=== PATIENT | female | born 1945 | race Caucasian/White ===

== ENCOUNTER → 2016-12-10 | Outpatient (CLI) | payer MEDICARE ==
[~2016-12-10] MED LIST: ASPI-516 CHEW; LOSA50TA PO; LOVA40TA PO
[2016-12-10 13:45] LABS: HEMATOCRIT 41.3 % (35.0-46.0); HEMOGLOBIN 13.8 GM/DL (11.6-15.3); MEAN CELL VOLUME 90.2 FL (80.0-100.0); MEAN CORPUSCULAR HEMOGLOBIN 30.2 PG (27.0-34.0); MEAN CORPUSCULAR HGB CONC 33.4 % (32.0-36.0); MEAN PLATELET VOLUME 10.2 FL (7.0-11.0); PLATELET COUNT 200 TH/MM3 (150-450); RED BLOOD COUNT 4.58 MIL/MM3 (4.00-5.30); RED CELL DISTRIBUTION WIDTH 14.4 % (11.6-17.2)
[2016-12-10 13:50] LABS: BILIRUBIN, URINE NEG (NEG); BLOOD, URINE TRACE (NEG); GLUCOSE,URINE NEG (NEG); KETONE, URINE 10 mg/dL (NEG); NITRITE,URINE NEG (NEG); PH, URINE 5.5 (5.0-8.5); URINE COLOR YELLOW (YELLW/STRAW); URINE LEUKOCYTE ESTERASE NEG (NEG)
--- NOTE | 2016-12-10 22:07 | EKG ---
Date Performed: 12/10/2016 Time Performed: 13:05:29 PTAGE: 71 years EKG: Sinus rhythm NORMAL ECG NO PREVIOUS TRACING DOCTOR: Sumanth Lim Interpretating Date/Time 12/10/2016 22:06:22
--- NOTE | 2016-12-10 22:07 | EKG ---
Date Performed: 12/10/2016 Time Performed: 13:05:29 PTAGE: 71 years EKG: Sinus rhythm NORMAL ECG NO PREVIOUS TRACING DOCTOR: Sumanth Lim Interpretating Date/Time 12/10/2016 22:06:22
--- NOTE | 2016-12-10 22:07 | EKG ---
Date Performed: 12/10/2016 Time Performed: 13:05:29 PTAGE: 71 years EKG: Sinus rhythm NORMAL ECG NO PREVIOUS TRACING DOCTOR: Sumanth Lim Interpretating Date/Time 12/10/2016 22:06:22
== END ==
LOC: CPRE 12:43
PROVIDERS: ATTEND Obstetrics & Gynecology
DX: Z01.810 Encounter for preprocedural cardiovascular examination (principal); Z01.812 Encounter for preprocedural laboratory examination; N95.0 Postmenopausal bleeding; D25.9 Leiomyoma of uterus, unspecified
CPT/HCPCS: 36415; 81001; 85027; 93005

== ENCOUNTER → 2016-12-12 | Day surgery (SDC) | payer MEDICARE ==
--- NOTE | 2016-12-11 09:10 | MH ---
cc: GURINDER DUNN JOHN DATE OF ADMISSION: 12/12/2016 ADMISSION DIAGNOSIS Postmenopausal bleeding. HISTORY OF PRESENT ILLNESS The patient is a 71-year-old single white female para 0 who developed painless vaginal bleeding in May of 2016. She saw her primary doctor, Dr. Dunn. He obtained a vaginal ultrasound on 11/06/2016 that showed a uterus that measured 8.1 cm, endometrium 9 mm, normal-appearing ovaries and fibroids. The right ovary showed a 1.5 cm cyst and the left showed a 4.1 cm cyst. She is now admitted for surgical evaluation. PAST MEDICAL HISTORY PREVIOUS SURGERIES None. MEDICATIONS Losartan. ALLERGIES None. TRANSFUSIONS None. OB HISTORY None. SERIOUS MEDICAL ILLNESS 1. Hypertension. 2. High cholesterol. SOCIAL HISTORY Retired. Alcohol occasional. Tobacco none. Drugs none. FAMILY HISTORY Noncontributory. PHYSICAL EXAMINATION GENERAL: A well-nourished, well-developed white female. VITAL SIGNS: Stable. HEENT: Exam is normal. CHEST: Clear. HEART: Regular rate. BREASTS: Symmetrical. ABDOMEN: Benign. PELVIC EXAM: Vagina is atrophic. Cervix normal. Uterus enlarged, about 12 weeks' size. Adnexa nonpalpable. ASSESSMENT As above. PLAN She is now admitted for outpatient hysteroscopy and D&C. While in the office I explained the procedures, the risks, benefits and complications and possible need for additional surgery pending findings. The patient would like to proceed. MD CHRISTIANO Buenrostro/SSB /8:35 AM /8:40 AM
[~2016-12-12] VITALS: Ht 172.7 cm; Wt 98.9 kg
[~2016-12-12] MED LIST changes: +ACETAMINOPHEN 1000 MG/100 ML 0 ML IV ONE; +ACETAMINOPHEN 1000 MG/100 ML VIAL IV SCH; -ASPI-516 CHEW; +ASPI81CH CHEW; +CHLORHEXIDINE GLUCONATE 2 % 1 PACK (2 CLOTHS) TOPICAL PRN; +DO NOT ADM ANY ANTICOAGULANT DRUGS PRN; +FAMOTIDINE 20 MG/2 ML VIAL ONE; +INSULIN HUMAN REGULAR 1,000 UNITS/10 ML VIAL SQ PRN; +LACTATED RINGER'S 1000 ML IV PRN; +LIDOCAINE HCL 1% PF 5 ML AMPULE OTHER ONE; +METOCLOPRAMIDE HCL 10 MG/2 ML VIAL IV PUSH PRN; +METOPROLOL TARTRATE 25 MG TAB PO PRN; +MIDAZOLAM HCL 2 MG/2 ML VIAL IV ONE; +ONDANSETRON HCL 4 MG/2 ML VIAL IV PUSH ONE; +POVIDONE IODINE 5% (ANTISEPSIS KIT) 4 APPLICATIONS EACH NARE PRN; +PROPOFOL 200 MG/20 ML AMP IV ONE; +SODIUM CHLORID 0.9% 500 ML IV PRN
[2016-12-12 09:20] VITALS: BP 145/67; PULSE 52; RESP 20; TEMP 96.6; O2SAT 99
--- NOTE | 2016-12-12 11:36 | MP ---
cc: LEIGH FITZGERALD DATE OF SURGERY 12/12/2016 PREOPERATIVE DIAGNOSIS bleeding with endometrial thickening and fibroids. POSTOPERATIVE DIAGNOSIS bleeding with endometrial thickening and fibroids with polyps. PROCEDURE Hysteroscopy, D&C. ANESTHESIA General LMA ESTIMATED BLOOD LOSS Less than 10 cc FLUIDS About 300 cc crystalloid. OBJECTIVE FINDINGS Following the induction of adequate general LMA anesthesia, the patient was prepped and draped supine on the operating table in the dorsolithotomy position in the usual sterile fashion with the bladder being drained via in and out catheterization. Exam of the anesthesia revealed an approximately 10 weeks size uterus. No adnexal masses palpable. The cervix exposed with handheld retractors. The anterior lip of the cervix grasped with a single-toothed tenaculum. Necrotic polyp-like structure removed from the cervix for permanent study. The cervix and uterus sounded to 8 cm. The uterus dilated with a #19 Hanks dilator. The scope passed revealing a normal endocervix with endometrial polyps and submucosal fibroids. The scope was now removed. Endocervical curettings obtained with a small serrated curet, endometrium a small sharp curette and polyp forceps were used to remove the polyps. All instruments removed. All counts correct. The patient's legs taken out of the stirrups and she was awakened and taken to the Recovery Room in good condition. MD CHRISTIANO Buenrostro/JASMIN /7:48 AM /11:29 AM
== END | disposition home or self-care (01) ==
LOC: HSDC 05:20
PROVIDERS: ATTEND Obstetrics & Gynecology
DX: N95.0 Postmenopausal bleeding (principal); D25.0 Submucous leiomyoma of uterus; N84.0 Polyp of corpus uteri; N84.1 Polyp of cervix uteri; R93.8 Abnormal findings on diagnostic imaging of other specified body structures; N90.5 Atrophy of vulva; I10 Essential (primary) hypertension; E78.00 Pure hypercholesterolemia, unspecified
CPT/HCPCS: 00952; 58558; 88305; J0131; J2250; J2405; J3010; J7120

== ENCOUNTER → 2017-01-27 | Outpatient (CLI) | payer MEDICARE ==
[~2017-01-27] MED LIST changes: -ACETAMINOPHEN 1000 MG/100 ML 0 ML IV ONE; -ACETAMINOPHEN 1000 MG/100 ML VIAL IV SCH; +ASPI-516 CHEW; -ASPI81CH CHEW; -CHLORHEXIDINE GLUCONATE 2 % 1 PACK (2 CLOTHS) TOPICAL PRN; -DO NOT ADM ANY ANTICOAGULANT DRUGS PRN; -FAMOTIDINE 20 MG/2 ML VIAL ONE; -INSULIN HUMAN REGULAR 1,000 UNITS/10 ML VIAL SQ PRN; -LACTATED RINGER'S 1000 ML IV PRN; -LIDOCAINE HCL 1% PF 5 ML AMPULE OTHER ONE; -METOCLOPRAMIDE HCL 10 MG/2 ML VIAL IV PUSH PRN; -METOPROLOL TARTRATE 25 MG TAB PO PRN; -MIDAZOLAM HCL 2 MG/2 ML VIAL IV ONE; -ONDANSETRON HCL 4 MG/2 ML VIAL IV PUSH ONE; -POVIDONE IODINE 5% (ANTISEPSIS KIT) 4 APPLICATIONS EACH NARE PRN; -PROPOFOL 200 MG/20 ML AMP IV ONE; -SODIUM CHLORID 0.9% 500 ML IV PRN
[2017-01-27 13:22] LABS: BASOPHIL % 0.9 % (0.0-2.0); EOSINOPHIL # 0.1 TH/MM3 (0-0.4); EOSINOPHIL % 2.6 % (0.0-4.0); HEMATOCRIT 42.3 % (35.0-46.0); HEMO FLAGS DIFF FINAL; LYMPH % 13.2 % (9.0-44.0); LYMPHOCYTE # 0.7 TH/MM3 (1.0-4.8); MEAN CELL VOLUME 90.2 FL (80.0-100.0); MEAN CORPUSCULAR HEMOGLOBIN 30.6 PG (27.0-34.0); MEAN CORPUSCULAR HGB CONC 33.9 % (32.0-36.0); NEUT % 77.3 % (16.0-70.0); PLATELET COUNT 219 TH/MM3 (150-450); RED BLOOD COUNT 4.69 MIL/MM3 (4.00-5.30); RED CELL DISTRIBUTION WIDTH 14.4 % (11.6-17.2); WHITE BLOOD COUNT 5.2 TH/MM3 (4.0-11.0)
[2017-01-27 13:36] LABS: BLOOD, URINE NEG (NEG); COMMENT (UR) CULT NOT INDICATED; CULTURE IF INDICATED CULT NOT INDICATED; GLUCOSE,URINE NEG (NEG); KETONE, URINE NEG (NEG); MUCUS URINE FEW /lpf (OCC); NITRITE,URINE NEG (NEG); PH, URINE 5.5 (5.0-8.5); URINE COLOR LIGHT-YELLOW (YELLW/STRAW)
[2017-01-27 13:42] LABS: POTASSIUM 4.1 MEQ/L (3.5-5.1)
[2017-01-27 13:43] LABS: BICARBONATE 27.6 MEQ/L (21.0-32.0)
== END ==
LOC: CPRE 12:47
PROVIDERS: ATTEND Obstetrics & Gynecology
DX: Z01.818 Encounter for other preprocedural examination (principal)
CPT/HCPCS: 36415; 80051; 81001; 85025

== ENCOUNTER 2017-01-29 13:43 | Observation (INO) | payer MEDICARE ==
--- NOTE | 2017-01-28 12:05 | MH ---
cc: LEIGH FITZGERALD DATE OF ADMISSION 01/29/2017 ADMISSION DIAGNOSIS Postmenopausal bleeding, uterine fibroids, polyps and ovarian cyst. HISTORY OF PRESENT ILLNESS This is a 71-year-old single white female para 0 developed painless bleeding per vagina approximately May of 2016. Dr. Cortes obtain ultrasound on 10/2016 which showed endometrial thickening, fibroids and bilateral ovarian cysts. She underwent outpatient hysteroscopy, D&C on 12/12/2016 that returned benign polyps and fibroids. Due to persistent symptoms, she is now admitted for hysterectomy. PAST MEDICAL HISTORY Previous surgery: As mentioned per HPI. Allergies: None Transfusions: None Serious Medical Illness: 1. Hypertension 2. High cholesterol MEDICATIONS Takes: 1. Losartan 2. Pravastatin OBSTETRICAL HISTORY None SOCIAL HISTORY Retired. Alcohol occasional, tobacco none. Drugs, none. FAMILY HISTORY Noncontributory PHYSICAL EXAM This is an overweight white female. VITAL SIGNS: Stable. Height 05/08, weight 218. HEENT: Exam is normal. CHEST: Clear. HEART: Regular rate. BREASTS: Symmetrical. ABDOMEN: Benign. PELVIC: Normal external genitalia and BUS. Vagina is normal. Cervix normal. Uterus is about 12 weeks' size. Adnexa nonpalpable. ASSESSMENT As above. PLAN She is now admitted for laparoscopy with planned LASH procedure, BSO, possible COBY-BSO. While in the office, we explained the procedures, the risks, benefits and complications and patient would like to proceed. Discussed different recovery times for this type of incision. The patient would like to proceed. MD CHRISTIANO Buenrostro/JASMIN /11:42 AM /11:50 AM
[~2017-01-29] VITALS: Ht 172.7 cm; Wt 96.3 kg
[~2017-01-29 13:43] MED LIST changes: +DEXAMETHASONE SOD PHOS 4 MG/ML VIAL IV ONE; +GLYCOPYRROLATE 1 MG/5 ML SYRINGE IV PUSH ONE; +KETOROLAC TROMETHAMINE 30 MG/ML (IVP) VIAL IV PUSH ONE; +LIDOCAINE HCL 1% PF 5 ML SYRINGE OTHER ONE; +NEOSTIGMINE 5 MG/5 ML SYRINGE IV PUSH ONE; +ONDANSETRON HCL 4 MG/2 ML VIAL IV ONE; +PHENYLEPH/NS 1000 MCG/10 ML SYR IV ONE; +PROPOFOL 200 MG/20 ML AMP IV ONE; +ROCURONIUM INJ 50 MG/5 ML SYRINGE IV PUSH ONE
[2017-01-29] MEDS ORDERED: ACETAMINOPHEN 1000 MG/100 ML 100 ML IV SCH (14:15)
[2017-01-29] MEDS ORDERED: POVIDONE IODINE 5% (ANTISEPSIS KIT) 4 APPLICATIONS EACH NARE PRN (14:15)
[2017-01-29] MEDS ORDERED: SODIUM CHLORID 0.9% 500 ML IV PRN (14:15)
[2017-01-29] MEDS ORDERED: METOPROLOL TARTRATE 25 MG TAB PO PRN (14:15)
[2017-01-29] MEDS ORDERED: CHLORHEXIDINE GLUCONATE 2 % 1 PACK (2 CLOTHS) TOPICAL PRN (14:15)
[2017-01-29] MEDS ORDERED: LACTATED RINGER'S 1000 ML IV PRN (14:15)
[2017-01-29] MEDS ORDERED: CLINDAMYCIN PHOS 600 MG/4 ML VIAL ONE (15:16)
[2017-01-29] MEDS ORDERED: SODIUM CHLORIDE 0.9% INJ 0 ML ONE (15:17)
[2017-01-29] MEDS ORDERED: SODIUM CHLORIDE 0.9% INJ 100 ML ONE ×2 (15:21)
[2017-01-29] MEDS ORDERED: CLINDAMYCIN 600 MG/NS PREMIX 50 ML IV ONE (15:30)
[2017-01-29] MEDS ORDERED: diphenhydrAMINE HCL 25 MG CAP PO PRN (17:30)
[2017-01-29] MEDS ORDERED: ONDANSETRON HCL 4 MG/2 ML VIAL IV PUSH PRN (17:30)
[2017-01-29] MEDS ORDERED: PROMETHAZINE INJ 25 MG/ML VIAL IM PRN (17:30)
[2017-01-29] MEDS ORDERED: ZOLPIDEM TARTRATE 5 MG TAB PO PRN (17:30)
[2017-01-29] MEDS ORDERED: DO NOT ADM ANY ANTICOAGULANT DRUGS PRN (17:41)
[2017-01-29] MEDS: D5-1/2 NS + KCL 20 MEQ INJ 1,000 ML IV SCH (17:45)
[2017-01-29] MEDS ORDERED: ONDANSETRON INJ 8 MG in DEXTROSE 5% IN WATER INJ 50 ML IV PRN ×2 (18:15)
[2017-01-29] MEDS ORDERED: GLYCOPYRROLATE 0.2 MG/ML VIAL ONE (18:42)
[2017-01-29] MEDS ORDERED: GLYCOPYRROLATE 0.2 MG/ML VIAL IV ONE (19:00)
[2017-01-29 20:00] VITALS: BP 127/52; PULSE 58; RESP 18; TEMP 98; O2SAT 100
[2017-01-29] MEDS ORDERED: DOCUSATE SODIUM 100 MG CAP PO SCH (21:00)
[2017-01-29 21:49] LABS: HEMATOCRIT 41.8 % (35.0-46.0); REVIEW FLAG FINAL
[2017-01-29] MEDS: KETOROLAC TROMETHAMINE 30 MG/ML (IVP) VIAL IVP SCH (23:46)
[2017-01-29 23:47] VITALS: BP 116/68; PULSE 76; RESP 18; TEMP 97.5; O2SAT 96
[2017-01-30] MEDS: D5-1/2 NS + KCL 20 MEQ INJ 1,000 ML IV SCH (01:25)
[2017-01-30 04:00] VITALS: BP 127/69; PULSE 61; RESP 16; TEMP 97.6; O2SAT 98
[2017-01-30 06:12] LABS: AUTOMATED NEUTROPHIL # 9.5 TH/MM3 (1.8-7.7); BASOPHIL % 0.2 % (0.0-2.0); HEMATOCRIT 39.4 % (35.0-46.0); HEMO FLAGS DIFF FINAL; LYMPH % 4.4 % (9.0-44.0); LYMPHOCYTE # 0.5 TH/MM3 (1.0-4.8); MEAN CELL VOLUME 91.2 FL (80.0-100.0); MEAN CORPUSCULAR HEMOGLOBIN 30.4 PG (27.0-34.0); MEAN CORPUSCULAR HGB CONC 33.4 % (32.0-36.0); NEUT % 92.4 % (16.0-70.0); PLATELET COUNT 173 TH/MM3 (150-450); RED BLOOD COUNT 4.32 MIL/MM3 (4.00-5.30); RED CELL DISTRIBUTION WIDTH 14.2 % (11.6-17.2); WHITE BLOOD COUNT 10.3 TH/MM3 (4.0-11.0)
[2017-01-30] MEDS: KETOROLAC TROMETHAMINE 30 MG/ML (IVP) VIAL IVP SCH (06:14)
[2017-01-30 06:30] LABS: BICARBONATE 22.6 MEQ/L (21.0-32.0); POTASSIUM 4.6 MEQ/L (3.5-5.1)
--- NOTE | 2017-01-30 08:26 | MP ---
cc: LEIGH FITZGERALD DATE OF SURGERY 01/29/2017 PREOPERATIVE DIAGNOSES Postmenopausal bleeding, uterine fibroids. Endometrial polyps. Ovarian cyst. POSTOPERATIVE DIAGNOSES Postmenopausal bleeding, uterine fibroids. Endometrial polyps. Ovarian cyst. Left paratubal cyst. Simple cyst on the right ovary. OBJECTIVE FINDINGS Following the induction of adequate general endotracheal anesthesia the patient was prepped and draped supine on the operating table in the usual sterile fashion. The abdomen was opened through a 3-cm curving infraumbilical incision using a knife to cut down through the skin to the fascia. The fascia was opened transversely, the peritoneum entered bluntly and digital palpation was normal. GelPort was placed, the laparoscope inserted a 5-port placed in the left lower quadrant and the same on the right. Findings revealed a 4-cm paratubal cyst on the left, simple cyst on the right. There was a creamy fluid in the right side of the cul-de-sac with no signs of any infection, diverticular disease. There were some adhesions around the cecum and the appendiceal site but no signs of inflammation. The cloudy peritoneal fluid was aspirated out for culture and for cytology. Harmonic scalpel was then used take the left ovarian vessels, left round ligament, left broad ligament, left side of the bladder flap and the same on the right. Harmonic scalpel now used to amputate the fundus from the cervix, a pouch inserted and the uterus, tubes and ovaries extracted intact in the pouch. Irrigation was now performed. No bleeding was evident. Blood pressure test was done; there was no bleeding. Ureters were inspected with good peristalsis. The operative site was coated with Evicel. The GelPort was now removed, the peritoneum closed with a running stitch of 2-0 Vicryl. The fascia was closed with a running locking stitch of 0 Vicryl from the corners to midline and tied, the subcu with running 3-0 Vicryl and skin with a running subcuticular 3-0Monocryl. The scope was now reinserted through the lower ports. Inspection revealed the GelPort site to be well-closed with no entrapment of tissue. The pelvis was inspected; there was no bleeding. The scope was now removed, gas allowed to escape. The small ports were removed and sutured with 3-0 Monocryl. Dermabond applied. All counts were correct. The patient was awakened and taken to the recovery room in good condition. MD CHRISTIANO Buenrostro/MALACHI /5:21 PM /8:07 AM
--- NOTE | 2017-01-30 08:33 | HHI.DCPOC ---
Discharge Care Plan Report Symptoms to Your Doctor -Temperature above 100.5 degrees -Redness, of incision or excessive or foul smelling drainage -Unusual pain or calf pain -Increased vaginal bleeding -Painful or difficulty urinating -Feelings of extreme sadness or anxiety after 2 weeks Goals to Promote Your Health * To prevent worsening of your condition and complications * To maintain your health at the optimal level Directions to Meet Your Goals Take your medications as prescribed Follow your dietary instruction Follow activity as directed Ensure plenty of rest for recovery Drink fluids for hydration Keep your appointments as scheduled Take your immunizations and boosters as scheduled If your symptoms worsen call your PCP, if no PCP go to Urgent Care Center or Emergency Room Smoking is Dangerous to Your Health. Avoid second hand smoke Call the 24-hour crisis hotline for domestic abuse at [place] MD Jan 30, 2017 08:33
[2017-01-30 08:47] VITALS: BP 143/60; PULSE 62; RESP 16; TEMP 97.6; O2SAT 99
[2017-01-30] MEDS: ACETAMINOPHEN 1000 MG/100 ML VIAL IV SCH ×2 (08:51)
== END 2017-01-30 09:30 | disposition home or self-care (01) ==
LOC: HSDC 13:43 → HSDI 17:27 → H1EA 18:58
PROVIDERS: ADMIT Obstetrics & Gynecology; ATTEND Obstetrics & Gynecology
DX: N95.0 Postmenopausal bleeding (principal); D25.9 Leiomyoma of uterus, unspecified; N84.0 Polyp of corpus uteri; N83.291 Other ovarian cyst, right side; I10 Essential (primary) hypertension; E78.00 Pure hypercholesterolemia, unspecified
CPT/HCPCS: 00840; 58542; 80048; 85014; 85018; 85025; 87015; 87070; 87102; 87116; 87205; 87206; 88112; 88305; 88307; 96365; 96375; G0378; J0131; J1100; J1885; J2370; J2405; J2710; J3010; J3480

== ENCOUNTER 2017-07-28 09:40 | Inpatient (IN) | payer MEDICARE ==
[~2017-07-28] VITALS: Ht 172.7 cm; Wt 81.9 kg
[2017-07-28 09:40] VITALS: BP 134/73; PULSE 83; RESP 16; TEMP 97.5; O2SAT 97
[~2017-07-28 09:40] MED LIST changes: -DEXAMETHASONE SOD PHOS 4 MG/ML VIAL IV ONE; -GLYCOPYRROLATE 1 MG/5 ML SYRINGE IV PUSH ONE; -KETOROLAC TROMETHAMINE 30 MG/ML (IVP) VIAL IV PUSH ONE; -LIDOCAINE HCL 1% PF 5 ML SYRINGE OTHER ONE; -NEOSTIGMINE 5 MG/5 ML SYRINGE IV PUSH ONE; -ONDANSETRON HCL 4 MG/2 ML VIAL IV ONE; -PHENYLEPH/NS 1000 MCG/10 ML SYR IV ONE; -PROPOFOL 200 MG/20 ML AMP IV ONE; -ROCURONIUM INJ 50 MG/5 ML SYRINGE IV PUSH ONE
[2017-07-28] MEDS ORDERED: SODIUM CHLOR 0.9% 1000 ML INJ 1,000 ML IV ONE (10:18)
[2017-07-28] MEDS ORDERED: SODIUM CHLORIDE 0.9% FLUSH 10 ML FLUSH IVF PRN (10:30)
[2017-07-28 10:41] LABS: AUTOMATED NEUTROPHIL # 4.3 TH/MM3 (1.8-7.7); BASOPHIL % 0.9 % (0.0-2.0); EOSINOPHIL # 0.1 TH/MM3 (0-0.4); EOSINOPHIL % 1.8 % (0.0-4.0); HEMATOCRIT 37.2 % (35.0-46.0); HEMOGLOBIN 12.3 GM/DL (11.6-15.3); LYMPH % 9.8 % (9.0-44.0); LYMPHOCYTE # 0.5 TH/MM3 (1.0-4.8); MEAN CELL VOLUME 84.6 FL (80.0-100.0); MEAN CORPUSCULAR HGB CONC 33.1 % (32.0-36.0); MEAN PLATELET VOLUME 9.8 FL (7.0-11.0); MONO % 7.1 % (0.0-8.0); MONOCYTE # 0.4 TH/MM3 (0-0.9); NEUT % 80.4 % (16.0-70.0); PLATELET COUNT 245 TH/MM3 (150-450); RED CELL DISTRIBUTION WIDTH 15.5 % (11.6-17.2); WHITE BLOOD COUNT 5.4 TH/MM3 (4.0-11.0)
[2017-07-28 11:56] VITALS: BP_SYST 115; BP_SYST 148; BP_DIAS 54; BP_DIAS 67; PULSE 86; PULSE 95; RESP 18; O2SAT 97
--- NOTE | 2017-07-28 12:00 | PD ---
HPI Chief Complaint: GI Complaint Time Seen by Provider: 09:49 Travel History International Travel<30 days: No Contact w/Intl Traveler<30days: No Traveled to known affect area: No History of Present Illness HPI 71-year-old female with history of hyperlipidemia, hypertension, presents today with complaints of diffuse watery diarrhea and nausea vomiting. Patient's had diarrhea for 1 month now. She also reports that she has had 2 episodes of severe vomiting lasting up to an hour each time. Patient has also had a 100 pound weight loss over the last 4 years. The patient apparently has been worked up by her primary care physician however there is been no resolution. She has had 2 CT scans and 2 ultrasounds. She has also had a colonoscopy. The patient states that they were told that they had a dilated stomach outpouching seen on x-ray. She denies any recent antibiotic use. She does give history that she did have an egg sandwich when this started. She reports that was about the same time when his Salmonella outbreak occurred at [facility]. There is no reported fevers, chills. She does report generalized weakness. PFSH Past Medical History Blood Disorders: No Cancer: No Cardiovascular Problems: No High Cholesterol: Yes Chemotherapy: No Diabetes: No Diminished Hearing: No Endocrine: No Genitourinary: No Hepatitis: No Hiatal Hernia: No Hypertension: Yes Immune Disorder: No Musculoskeletal: No Neurologic: No Psychiatric: No Reproductive: No Respiratory: No Radiation Therapy: No Thyroid Disease: No Tetanus Vaccination: > 5 Years Influenza Vaccination: Yes ?: Not Past Surgical History Abdominal Surgery: No AICD: No Body Medical Devices: none Cardiac Surgery: No Ear Surgery: No Endocrine Surgery: No Eye Surgery: No Genitourinary Surgery: No Gynecologic Surgery: Yes (D+C) Hysterectomy: Yes Joint Replacement: No Oral Surgery: No Pacemaker: No Thoracic Surgery: No Other Surgery: Yes (colonoscopy) Social History Alcohol Use: No Tobacco Use: No Substance Use: No Allergies-Medications (Allergen,Severity, Reaction): Coded Allergies: shellfish derived (Verified Allergy, Severe, Swelling, 07/28/17) sulfite (Verified Allergy, Severe, Hives, 07/28/17) penicillin G (Verified Allergy, Unknown, Hives, 07/28/17) Reported Meds & Prescriptions Reported Meds & Active Scripts Active Reported Aspirin 81 Mg Chew 81 Mg CHEW DAILY Losartan (Losartan Potassium) 50 Mg Tab 50 Mg PO DAILY Lovastatin 40 Mg Tab 40 Mg PO DAILY Review of Systems Except as stated in HPI: all other systems reviewed are Neg General / Constitutional: No: Fever HENT: Positive: Lightheadedness, No: Headaches, Neck Pain Cardiovascular: No: Chest Pain or Discomfort, Palpitations, Irregular Rhythm Respiratory: No: Cough, Shortness of Breath Gastrointestinal: Positive: Nausea, Vomiting, Diarrhea, Abdominal Pain Genitourinary: No: Frequency, Dysuria Musculoskeletal: Positive: Weakness (Generalized), No: Pain Neurologic: Positive: Weakness (Generalized), Dizziness, No: Headache Physical Exam Narrative GENERAL: Well-developed female who appears to have dry mucous membranes. Patient is not in acute respiratory distress. SKIN: Focused skin assessment warm/dry. HEAD: Atraumatic. Normocephalic. EYES: Pupils equal and round. No scleral icterus. No injection or drainage. ENT: No nasal bleeding or discharge. Mucous membranes pink and moist. NECK: Trachea midline. Supple. CARDIOVASCULAR: Regular rate and rhythm. No murmur appreciated. RESPIRATORY: No accessory muscle use. Clear to auscultation. Breath sounds equal bilaterally. GASTROINTESTINAL: Abdomen soft, non-tender, nondistended. No pulsatile masses. No rebound. MUSCULOSKELETAL: No obvious deformities. No clubbing. No cyanosis. No edema. NEUROLOGICAL: Awake and alert. No obvious cranial nerve deficits. Motor grossly within normal limits. Normal speech. Data Data Last Documented VS Orders Orders Complete Blood Count With Diff (07/28/17 10:18) Urinalysis - C+S If Indicated (07/28/17 10:18) Lipase (07/28/17 10:18) Iv Access Insert/Monitor (07/28/17 10:18) Ecg Monitoring (07/28/17 10:18) Oximetry (07/28/17 10:18) Sodium Chlor 0.9% 1000 Ml Inj (Ns 1000 M (07/28/17 10:18) Sodium Chloride 0.9% Flush (Ns Flush) (07/28/17 10:30) Thyroid Stimulating Hormone (07/28/17 10:18) Comprehensive Metabolic Panel (07/28/17 10:55) C Diff Toxin Pcr (07/28/17 13:23) Enteric Path (Stool) (07/28/17 13:23) Admit To Inpatient (07/28/17 ) Vital Signs (Adult) Q4H (07/28/17 14:18) Activity Oob With Assistance (07/28/17 14:18) Sales Support Assistant / Telemetry .CONTINUOUS (07/28/17 14:18) Diet Clear Liquid (07/28/17 Dinner) Sodium Chlor 0.9% 1000 Ml Inj (Ns 1000 M (07/28/17 14:18) Sodium Chloride 0.9% Flush (Ns Flush) (07/28/17 14:30) Sodium Chloride 0.9% Flush (Ns Flush) (07/28/17 21:00) Metoclopramide Inj (Reglan Inj) (07/28/17 14:30) Complete Blood Count With Diff (07/29/17 06:00) Enoxaparin Inj (Lovenox Inj) (07/28/17 16:00) Scd Bilateral/Knee High JOSE LUIS.BID (07/28/17 14:18) Naloxone Inj (Narcan Inj) (07/28/17 14:30) Inpatient Certification (07/28/17 ) Consult Gastroenterology (07/28/17 ) Phosphorus (Po4) (07/29/17 06:00) Magnesium (Mg) (07/29/17 06:00) Lipase (07/29/17 06:00) Kiara Screen (07/29/17 06:00) Rheumatoid Screen/Titer (Rf) (07/29/17 06:00) C-Reactive Protein (Crp) (07/29/17 06:00) Westergren Sedimentation Rate (07/29/17 06:00) (Hub Use Only)Inp Phy Cons/Ref (07/28/17 ) Admit Order (Ed Use Only) (07/28/17 14:29) Ondansetron Odt (Zofran Odt) (07/28/17 15:30) Labs Laboratory Tests Test 07/28/17 10:10 07/28/17 13:20 White Blood Count 5.4 TH/MM3 Red Blood Count 4.40 MIL/MM3 Hemoglobin 12.3 GM/DL Hematocrit 37.2 % Mean Corpuscular Volume 84.6 FL Mean Corpuscular Hemoglobin 28.0 PG Mean Corpuscular Hemoglobin Concent 33.1 % Red Cell Distribution Width 15.5 % Platelet Count 245 TH/MM3 Mean Platelet Volume 9.8 FL Neutrophils (%) (Auto) 80.4 % Lymphocytes (%) (Auto) 9.8 % Monocytes (%) (Auto) 7.1 % Eosinophils (%) (Auto) 1.8 % Basophils (%) (Auto) 0.9 % Neutrophils # (Auto) 4.3 TH/MM3 Lymphocytes # (Auto) 0.5 TH/MM3 Monocytes # (Auto) 0.4 TH/MM3 Eosinophils # (Auto) 0.1 TH/MM3 Basophils # (Auto) 0.0 TH/MM3 CBC Comment DIFF FINAL Differential Comment Blood Urea Nitrogen 10 MG/DL Creatinine 0.97 MG/DL Random Glucose 83 MG/DL Total Protein 7.0 GM/DL Albumin 2.9 GM/DL Calcium Level 8.5 MG/DL Alkaline Phosphatase 111 U/L Aspartate Amino Transf (AST/SGOT) 13 U/L Alanine Aminotransferase (ALT/SGPT) 13 U/L Total Bilirubin 0.4 MG/DL Sodium Level 141 MEQ/L Potassium Level 3.2 MEQ/L Chloride Level 109 MEQ/L Carbon Dioxide Level 20.8 MEQ/L Anion Gap 11 MEQ/L Estimat Glomerular Filtration Rate 57 ML/MIN Lipase 187 U/L Thyroid Stimulating Hormone 3rd Gen 1.690 uIU/ML Urine Color YELLOW Urine Turbidity CLEAR Urine pH 5.5 Urine Specific [place] 1.009 Urine Protein NEG mg/dL Urine Glucose (UA) NEG mg/dL Urine Ketones NEG mg/dL Urine Occult Blood NEG Urine Nitrite NEG Urine Bilirubin NEG Urine Urobilinogen LESS THAN 2.0 MG/DL Urine Leukocyte Esterase NEG Urine RBC 1 /hpf Urine WBC LESS THAN 1 /hpf Urine Mucus FEW /lpf Microscopic Urinalysis Comment CULT NOT INDICATED Stool C. difficile Toxin (PCR) POSITIVE Stl C. difficile Toxin Epiderm 027 PRESUMPTIVE NEGATIVE MDM Medical Decision Making Medical Screen Exam Complete: Yes Emergency Medical Condition: Yes Differential Diagnosis Dumping syndrome versus bacterial gastroenteritis versus metabolic derangement versus occult neoplastic disease. Narrative Course 71-year-old female presents today with complaints of 1 month of watery diarrhea. Patient also had 2 episodes of severe nausea vomiting. Last episode of nausea vomiting was the day prior to this episode. The patient has mild hypokalemia. Stool cultures have been sent off including C. difficile as well as enteric pathogens. The patient will be admitted to the hospital and given IV hydration. Of potassium replacement. She will likely need a GI consult as well. Case was discussed with the admitting physician and he is agreeable to the plan. Diagnosis Primary Impression: Diarrhea Additional Impressions: Hypokalemia Hyperemesis Admitting Information Admitting Physician Requests: Observation Scripts Lactobacillus Acidophilus (Acidophilus/l-Sporogenes) 35 Million Cell-25 Million Cell Tab 1 TAB PO TID for probiotic, #60 TAB Prov: Mechelle Irwin MD 07/31/17 Vancomycin Inj (Vancomycin Inj) 500 Mg Inj 500 MG PO QID for c diff for 14 Days, INJECTION Prov: Mechelle Irwin MD 07/31/17 Jim Bennett MD Jul 28, 2017 12:00
[2017-07-28 12:14] LABS: ALBUMIN 2.9 GM/DL (3.4-5.0); ALT (GPT) 13 U/L (10-53); AST (GOT) 13 U/L (15-37); BICARBONATE 20.8 MEQ/L (21.0-32.0); BLOOD UREA NITROGEN 10 MG/DL (7-18); CALCIUM 8.5 MG/DL (8.5-10.1); CHLORIDE 109 MEQ/L (98-107); CREATININE 0.97 MG/DL (0.50-1.00); GLOMERULAR FILTRATION RATE 57 ML/MIN (>89); GLUCOSE,RANDOM 83 MG/DL (74-106); SODIUM (NA) 141 MEQ/L (136-145)
[2017-07-28 12:15] LABS: TOTAL BILIRUBIN ADULT 0.4 MG/DL (0.2-1.0)
[2017-07-28 12:16] LABS: ALKALINE PHOSPHATASE 111 U/L (45-117)
[2017-07-28 13:58] LABS: BILIRUBIN, URINE NEG (NEG); BLOOD, URINE NEG (NEG); GLUCOSE,URINE NEG (NEG); KETONE, URINE NEG (NEG); MUCUS URINE FEW /lpf (OCC); NITRITE,URINE NEG (NEG); PH, URINE 5.5 (5.0-8.5); URINE COLOR YELLOW (YELLW/STRAW); URINE LEUKOCYTE ESTERASE NEG (NEG)
[2017-07-28] MEDS ORDERED: SODIUM CHLORIDE 0.9% FLUSH 10 ML FLUSH IV FLUSH PRN (14:30)
[2017-07-28] MEDS ORDERED: METOCLOPRAMIDE HCL 10 MG/2 ML VIAL IV PUSH PRN (14:30)
[2017-07-28] MEDS ORDERED: NALOXONE HCL 0.4 MG/ML AMP IV PUSH PRN (14:30)
[2017-07-28] MEDS ORDERED: PROMETHAZINE HCL 25 MG TAB PO PRN (15:15)
--- NOTE | 2017-07-28 15:20 | HHI.HP ---
[facility] Primary Care Physician Elmer Cortes MD Admission Diagnosis Intractable nausea vomiting/Diarrha, metabolic derangement Diagnoses: (1) Diarrhea Diagnosis: Principal (2) Hypokalemia Diagnosis: Principal (3) Hyperemesis Diagnosis: Principal Travel History International Travel<30 Days: No Contact w/Intl Traveler <30 Da: No Traveled to Known Affected Are: No History of Present Illness Mrs. Johnson is a 71 year old female. She has come into the hospital today due to hyperemesis and diarrhea. She reports in the past month she has had persistent diarrhea which appears to be worsening. She has a 20 pound weight loss within that time. For about 1 year she has been having occasional diarrhea. Etiology/source is not known. She does not recall any point that the consistency of her stool has been greasy or oily, stools are described as watery, not pale or white. Gallbladder workup as an outpatient has been negative. Pancreas workup was negative. She has had a hysterectomy in January 2017. She is also had an episode of food poisoning/toxicity about 2 years ago. Hypokalemia is present due to her degree of diarrhea. As an outpatient, with her primary care physician, she has been having a workup of her diarrhea. No findings of thyroid disease. Colonoscopy has been performed and she reports that the colonoscopy was within normal limits. She has not had an EGD. She has not tried any treatment such as probiotics, steroids, Imodium or Lomotil. No other complaints at this time. Review of Systems Constitutional: COMPLAINS OF: Fatigue, Weight loss, DENIES: Fever, Chills, Night Sweats Eyes: DENIES: Diplopia, Eye inflammation, Eye pain Ears, nose, mouth, throat: DENIES: Hearing loss, Vertigo, Nasal discharge Respiratory: DENIES: Cough, Wheezing, Shortness of breath Cardiovascular: DENIES: Chest pain, Palpitations, Syncope, Dyspnea on Exertion Gastrointestinal: COMPLAINS OF: Diarrhea, Nausea, Vomiting, DENIES: Abdominal pain, Black stools, Bloody stools Musculoskeletal: DENIES: Joint pain, Muscle aches, Stiffness, Joint Swelling Integumentary: DENIES: Abnormal pigmentation, Pruritus, Rash, Nail changes Hematologic/lymphatic: DENIES: Bruising, Lymphadenopathy Immunologic/allergic: DENIES: Eczema, Urticaria Neurologic: DENIES: Abnormal gait, Headache, Paresthesias Psychiatric: DENIES: Anxiety, Confusion, Hallucinations Past Family Social History Past Medical History Hypertension Hyperlipidemia Diarrhea Past Surgical History D&C Hysterectomy Colonoscopy history Reported Medications Reported Meds & Active Scripts Active Reported Aspirin 81 Mg Chew 81 Mg CHEW DAILY Losartan (Losartan Potassium) 50 Mg Tab 50 Mg PO DAILY Lovastatin 40 Mg Tab 40 Mg PO DAILY Allergies: Coded Allergies: shellfish derived (Verified Allergy, Severe, Swelling, 07/28/17) sulfite (Verified Allergy, Severe, Hives, 07/28/17) penicillin G (Verified Allergy, Unknown, Hives, 07/28/17) Active Ordered Medications Administered Medications Medications (Trade) Dose Ordered Sig/Elle Route PRN Reason Start Time Stop Time Status Last Admin Dose Admin Sodium Chloride 1,000 ml @ 125 mls/hr Q8H ONCE IV 07/28/17 10:18 07/28/17 18:17 07/28/17 10:32 Family History The patient's father had bladder cancer and gallbladder disease The patient's mother had coronary artery disease Social History No smoking No illicit drug abuse No alcohol abuse Physical Exam Vital Signs Vital Signs Date Time Temp Pulse Resp B/P (MAP) Pulse Ox O2 Delivery O2 Flow Rate FiO2 07/28/17 11:56 95 18 148/67 (94) 97 Room Air 07/28/17 09:40 97.5 83 16 134/73 (93) 97 Physical Exam GENERAL: This is a well-nourished, well-developed patient, in no apparent distress. SKIN: No rashes, ecchymoses or lesions. Cool and dry. HEAD: Atraumatic. Normocephalic. No temporal or scalp tenderness. EYES: Pupils equal round and reactive. Extraocular motions intact. No scleral icterus. No injection or drainage. ENT: Nose without bleeding, purulent drainage or septal hematoma. Throat without erythema, tonsillar hypertrophy or exudate. Uvula midline. Airway patent. NECK: Trachea midline. No JVD or lymphadenopathy. Supple, nontender, no meningeal signs. CARDIOVASCULAR: Regular rate and rhythm without murmurs, gallops, or rubs. RESPIRATORY: Clear to auscultation. Breath sounds equal bilaterally. No wheezes , rales, or rhonchi. GASTROINTESTINAL: Abdomen soft, non-tender, nondistended. No hepato-splenomegaly , or palpable masses. No guarding. MUSCULOSKELETAL: Extremities without clubbing, cyanosis, or edema. No joint tenderness, effusion, or edema noted. No calf tenderness. Negative Homans sign bilaterally. NEUROLOGICAL: Awake and alert. Cranial nerves II through XII intact. Motor and sensory grossly within normal limits. Five out of 5 muscle strength in all muscle groups. Normal speech. Laboratory Laboratory Tests Test 07/28/17 10:10 07/28/17 13:20 White Blood Count 5.4 Red Blood Count 4.40 Hemoglobin 12.3 Hematocrit 37.2 Mean Corpuscular Volume 84.6 Mean Corpuscular Hemoglobin 28.0 Mean Corpuscular Hemoglobin Concent 33.1 Red Cell Distribution Width 15.5 Platelet Count 245 Mean Platelet Volume 9.8 Neutrophils (%) (Auto) 80.4 Lymphocytes (%) (Auto) 9.8 Monocytes (%) (Auto) 7.1 Eosinophils (%) (Auto) 1.8 Basophils (%) (Auto) 0.9 Neutrophils # (Auto) 4.3 Lymphocytes # (Auto) 0.5 Monocytes # (Auto) 0.4 Eosinophils # (Auto) 0.1 Basophils # (Auto) 0.0 CBC Comment DIFF FINAL Differential Comment Blood Urea Nitrogen 10 Creatinine 0.97 Random Glucose 83 Total Protein 7.0 Albumin 2.9 Calcium Level 8.5 Alkaline Phosphatase 111 Aspartate Amino Transf (AST/SGOT) 13 Alanine Aminotransferase (ALT/SGPT) 13 Total Bilirubin 0.4 Sodium Level 141 Potassium Level 3.2 Chloride Level 109 Carbon Dioxide Level 20.8 Anion Gap 11 Estimat Glomerular Filtration Rate 57 Lipase 187 Thyroid Stimulating Hormone 3rd Gen 1.690 Urine Color YELLOW Urine Turbidity CLEAR Urine pH 5.5 Urine Specific [place] 1.009 Urine Protein NEG Urine Glucose (UA) NEG Urine Ketones NEG Urine Occult Blood NEG Urine Nitrite NEG Urine Bilirubin NEG Urine Urobilinogen LESS THAN 2.0 Urine Leukocyte Esterase NEG Urine RBC 1 Urine WBC LESS THAN 1 Urine Mucus FEW Microscopic Urinalysis Comment CULT NOT INDICATED Date/Time Source Procedure Growth Status 07/28/17 13:20 Stool Stool Pending Received Result Diagram: 07/28/17 1010 07/28/17 1010 Caprini VTE Risk Assessment Caprini VTE Risk Assessment: No/Low Risk (score <= 1) Caprini Risk Assessment Model Point Value = 1 Point Value = 2 Point Value = 3 Point Value = 5 Age 41-60 Minor surgery BMI > 25 kg/m2 Swollen legs Varicose veins or History of unexplained or recurrent spontaneous Oral contraceptives or hormone replacement Sepsis (< 1 month) Serious lung disease, including pneumonia (< 1 month) Abnormal pulmonary function Acute myocardial infarction Congestive heart failure (< 1 month) History of inflammatory bowel disease Medical patient at bed rest Age 61-74 Arthroscopic surgery Major open surgery (> 45 min) Laparoscopic surgery (> 45 min) Malignancy Confined to bed (> 72 hours) Immobilizing plaster cast Central venous access Age >= 75 History of VTE Family history of VTE Factor V Leiden Prothrombin [id number] Lupus anticoagulant Anticardiolipin antibodies Elevated serum homocysteine Heparin-induced thrombocytopenia Other congenital or acquired thrombophilia Stroke (< 1 month) Elective arthroplasty Hip, pelvis, or leg fracture Acute spinal cord injury (< 1 month) Prophylaxis Regimen Total Risk Factor Score Risk Level Prophylaxis Regimen 0-1 Low Early ambulation 2 Moderate Order ONE of the following: *Sequential Compression Device (SCD) *Heparin 5000 units SQ BID 3-4 Higher Order ONE of the following medications: *Heparin 5000 units SQ TID *Enoxaparin/Lovenox 40 mg SQ daily (WT < 150 kg, CrCl > 30 mL/min) *Enoxaparin/Lovenox 30 mg SQ daily (WT < 150 kg, CrCl > 10-29 mL/min) *Enoxaparin/Lovenox 30 mg SQ BID (WT < 150 kg, CrCl > 30 mL/min) AND/OR *Sequential Compression Device (SCD) 5 or more Highest Order ONE of the following medications: *Heparin 5000 units SQ TID (Preferred with Epidurals) *Enoxaparin/Lovenox 40 mg SQ daily (WT < 150 kg, CrCl > 30 mL/min) *Enoxaparin/Lovenox 30 mg SQ daily (WT < 150 kg, CrCl > 10-29 mL/min) *Enoxaparin/Lovenox 30 mg SQ BID (WT < 150 kg, CrCl > 30 mL/min) AND *Sequential Compression Device (SCD) Assessment and Plan Problem List: (1) Hypokalemia ICD Code: E87.6 - Hypokalemia (2) Diarrhea ICD Code: R19.7 - Diarrhea, unspecified (3) Hyperemesis ICD Code: R11.10 - Vomiting, unspecified Assessment and Plan 71-year-old female admitted secondary to hyperemesis with diarrhea and unintentional weight loss and hypokalemia. Hypokalemia Replace and monitor High risk given patient's degree of diarrhea Follow on telemetry Diarrhea Unintentional weight loss Weight loss may be related to dehydration TSH is within normal limits Check stool ova and parasites Giardia screening C. difficile screen Autoimmune screening Cortisol level GI consulted Probiotic started Prednisone started Lomotil started Monitor for any signs of improvement If improved on 3 treatments consider weaning one at a time Hyperlipidemia Hold statin for now Hypertension Continue Lomotil DVT prophylaxis Lovenox Physician Certification 2 Midnight Certification Type: Admission for Inpatient Services Order for Inpatient Services The services are ordered in accordance with Medicare regulations or non- Medicare payer requirements, as applicable. In the case of services not specified as inpatient-only, they are appropriately provided as inpatient services in accordance with the 2-midnight benchmark. Estimated LOS (days): 3 days is the estimated time the patient will need to remain in the hospital, assuming treatment plan goals are met and no additional complications. Post-Hospital Plan: Home Alex Ann MD Jul 28, 2017 15:20
[2017-07-28] MEDS: SODIUM CHLOR 0.9% 1000 ML INJ 1,000 ML IV SCH ×2 (15:26→22:23)
[2017-07-28] MEDS ORDERED: ONDANSETRON ODT 4 MG TAB PO PRN (15:30)
--- NOTE | 2017-07-28 15:36 | PD.CONS ---
HPI History of Present Illness This is a 71 year old F with PMH significant for HTN and hyperlipidemia who presented to the ER today with complaints of diarrhea for the past days, states multiple BMs a day with urgency. Denies hematochezia, melena, and fecal incontinence. Also complaining of two back to back episodes of emesis yesterday , reports two other episodes of emesis over the past month. Denies hematemesis. Complaining of weight loss of 100lbs over the past four years, has been trying to intentionally lose about 15 pounds a year but over the last 60 days has had an unintentional weight loss of 30 lbs. Pt has had extensive work up for this over the past month. Reports colonoscopy by Dr. Hayes done 3 weeks ago was normal. She has had stool testing by her PCP but has not received the results yet. Recently thyroid levels were checked and came back WNL. Pt denies any associated abdominal pain, acid reflux, heartburn. Denies history of pancreatitis or pancreatic insufficiency. Denies sick contacts, recent antibiotics, recent travel. Denies family history significant for colon cancer , UC, and Crohns. Denies ETOH and smoking. (Ruby Nix) PFSH Past Medical History Hypertension Hyperlipidemia Diarrhea Past Surgical History D&C Hysterectomy Colonoscopy history (Ruby Nix) Coded Allergies: shellfish derived (Verified Allergy, Severe, Swelling, 07/28/17) sulfite (Verified Allergy, Severe, Hives, 07/28/17) penicillin G (Verified Allergy, Unknown, Hives, 07/28/17) Family History The patient's father had bladder cancer and gallbladder disease The patient's mother had coronary artery disease Social History No smoking No illicit drug abuse No alcohol abuse (Ruby Nix) Review of Systems Gastrointestinal: COMPLAINS OF: Diarrhea, Nausea, Vomiting, DENIES: Abdominal pain, Black stools, Bloody stools, Constipation, Difficulty Swallowing, Odynophagia, Swelling of Abdomen, Heartburn, Hematemesis (Ruby Nix) GI Exam Vitals I&O Vital Signs Date Time Temp Pulse Resp B/P (MAP) Pulse Ox O2 Delivery O2 Flow Rate FiO2 07/28/17 11:56 95 18 148/67 (94) 97 Room Air 07/28/17 09:40 97.5 83 16 134/73 (93) 97 Laboratory Test 07/28/17 10:10 07/28/17 13:20 White Blood Count 5.4 TH/MM3 Red Blood Count 4.40 MIL/MM3 Hemoglobin 12.3 GM/DL Hematocrit 37.2 % Mean Corpuscular Volume 84.6 FL Mean Corpuscular Hemoglobin 28.0 PG Mean Corpuscular Hemoglobin Concent 33.1 % Red Cell Distribution Width 15.5 % Platelet Count 245 TH/MM3 Mean Platelet Volume 9.8 FL Neutrophils (%) (Auto) 80.4 % Lymphocytes (%) (Auto) 9.8 % Monocytes (%) (Auto) 7.1 % Eosinophils (%) (Auto) 1.8 % Basophils (%) (Auto) 0.9 % Neutrophils # (Auto) 4.3 TH/MM3 Lymphocytes # (Auto) 0.5 TH/MM3 Monocytes # (Auto) 0.4 TH/MM3 Eosinophils # (Auto) 0.1 TH/MM3 Basophils # (Auto) 0.0 TH/MM3 CBC Comment DIFF FINAL Differential Comment Blood Urea Nitrogen 10 MG/DL Creatinine 0.97 MG/DL Random Glucose 83 MG/DL Total Protein 7.0 GM/DL Albumin 2.9 GM/DL Calcium Level 8.5 MG/DL Alkaline Phosphatase 111 U/L Aspartate Amino Transf (AST/SGOT) 13 U/L Alanine Aminotransferase (ALT/SGPT) 13 U/L Total Bilirubin 0.4 MG/DL Sodium Level 141 MEQ/L Potassium Level 3.2 MEQ/L Chloride Level 109 MEQ/L Carbon Dioxide Level 20.8 MEQ/L Anion Gap 11 MEQ/L Estimat Glomerular Filtration Rate 57 ML/MIN Lipase 187 U/L Thyroid Stimulating Hormone 3rd Gen 1.690 uIU/ML Urine Color YELLOW Urine Turbidity CLEAR Urine pH 5.5 Urine Specific [place] 1.009 Urine Protein NEG mg/dL Urine Glucose (UA) NEG mg/dL Urine Ketones NEG mg/dL Urine Occult Blood NEG Urine Nitrite NEG Urine Bilirubin NEG Urine Urobilinogen LESS THAN 2.0 MG/DL Urine Leukocyte Esterase NEG Urine RBC 1 /hpf Urine WBC LESS THAN 1 /hpf Urine Mucus FEW /lpf Microscopic Urinalysis Comment CULT NOT INDICATED Date/Time Source Procedure Growth Status 07/28/17 13:20 Stool Stool Pending Received Physical Examination HEENT: Normocephalic; atraumatic CHEST: Even/unlabored CARDIAC: RRR ABDOMEN: Obese, soft, nontender; bowel sounds active EXTREMITIES: No clubbing, cyanosis, or edema. SKIN: Normal; no rash; no jaundice. PHOTOGRAPHIC PRINTER: Alert and oriented times three. (Ruby Nix) Assessment and Plan Plan Assessment: - Diarrhea for the past 30 days, multiple episodes a day, states urgency, denies incontinence. Denies hematochezia and melena. Denies sick contacts, recent abx, recent travel, fever, chills. Denies associated abdominal pain. Also reports 2 episodes of emesis yesterday back to back and 2 other episodes of emesis over the past 30 days. Weight loss of 100 lbs over the past four years, intentionally has been losing 15 pounds a year but unintentionally lost 30 lbs over the past 6 months. Has had outpatient work up: colonoscopy [address] Hayes, reports normal exam. Thyroid recently checked and was normal. Reports stool studies by PCP, has not received results yet, she is unsure which studies were ordered Pt reports imaging study at [facility] revealed "dilated stomach outpouching" EGD (2002) --> Mild reflux esophagitis, hiatal hernia, mild gastritis Plan: CT abdomen and pelvis Stool studies Request records from Dr. Hayes and outpatient imaging from [facility] Celiac panel Further recommendations based on findings of above and clinical course Pt has been seen and examined by myself and Dr. Dixon and this note is written on his behalf (Ruby Nix) Physician Comments As above, agree assessmnet and plan. Will follow up with you. Thank you for the consult. (Arjun Dixon MD) Ruby Nix Jul 28, 2017 15:36 Arjun Dixon MD Jul 28, 2017 17:00
[2017-07-28] MEDS ORDERED: POTASSIUM CHLORIDE 20 MEQ CONTROLLED RELEASE TAB PO ONE (16:00)
[2017-07-28] MEDS ORDERED: methylPREDNISolone SOD SUCC 40 MG/1 ML VIAL IV PUSH ONE (16:00)
[2017-07-28 16:35] VITALS: BP 163/74; PULSE 94; RESP 18; O2SAT 100
--- NOTE | 2017-07-28 16:35 | RADRPT ---
EXAM DATE: 07/28/2017 4:25 PM EDT AGE/SEX: 71 years / Female INDICATIONS: Weight loss diarrhea also hyperemesis CLINICAL DATA: This is the patient's initial encounter. Patient reports that signs and symptoms have been present for 1 month and indicates a pain score of 0/10. MEDICAL/SURGICAL HISTORY: Hypertension. Hysterectomy. RADIATION DOSE: 18.27 CTDI (mGy) COMPARISON: No prior exams available for comparison. TECHNIQUE: Multiple contiguous axial images were obtained through the abdomen. Images were obtained using multiple row detector helical technique. Using dose reduction techniques, radiation dose was ke pt as low as reasonably achievable to obtain optimal diagnostic quality images. FINDINGS: The lower lungs are clear. Trace pericardial effusion is evident. Trace ascites is evident Liver is free of focal defects Large peritoneal mass is present measuring 14 cm that involves the root of the mesentery, the body th e pancreas initial association with the aorta and inferior vena cava. Lymphoma would be most likely diagnosis Trace ascites is present in the pelvis there is no adenopathy identified the pelvis. Review of bone windows CONCLUSION: 1. Large peritoneal mass as described above incompletely evaluated because of lack of intravenous an d oral contrast. Electronically signed by: Clement Bernal MD 07/28/2017 4:33 PM EDT
[2017-07-28 18:00] VITALS: BP 151/68; PULSE 68; RESP 18; TEMP 97.7; O2SAT 98
[2017-07-28] MEDS ORDERED: DIPHENOXYLATE/ATROPINE 2.5 MG/0.025 MG TAB PO SCH (18:00)
[2017-07-28] MEDS: LACTOBACILLUS ACIDOPHILUS TAB PO SCH (18:17)
[2017-07-28] MEDS: ENOXAPARIN SODIUM 40 MG/0.4 ML SYRINGE SQ SCH (18:21)
[2017-07-28 20:00] VITALS: BP 138/63; PULSE 69; RESP 14; TEMP 98.1; O2SAT 95
[2017-07-28] MEDS ORDERED: predniSONE 10 MG TAB PO SCH (21:00)
[2017-07-28] MEDS: VANCOMYCIN 500 MG VIAL (FOR ORAL USE ONLY) PO SCH (21:54)
[2017-07-28] MEDS: SODIUM CHLORIDE 0.9% FLUSH 10 ML FLUSH IV FLUSH SCH (21:54)
[2017-07-29] VITALS (8 sets, daily range): BP systolic 131–149; BP diastolic 58–73; PULSE 66–78; RESP 16–18; TEMP 97.5–98; O2SAT 95–99
[2017-07-29 00:59] LABS: CARCINOEMBRYONIC ANTIGEN 2.8 NG/ML (0.2-5.0)
[2017-07-29 01:37] LABS: CA 19-9 5.8 U/ML (0.0-35.0)
[2017-07-29 06:52] LABS: HEMATOCRIT 34.3 % (35.0-46.0); HEMOGLOBIN 11.2 GM/DL (11.6-15.3); MEAN CELL VOLUME 84.8 FL (80.0-100.0); MEAN CORPUSCULAR HEMOGLOBIN 27.7 PG (27.0-34.0); MEAN CORPUSCULAR HGB CONC 32.7 % (32.0-36.0); MEAN PLATELET VOLUME 10.5 FL (7.0-11.0); PLATELET COUNT 231 TH/MM3 (150-450); RED BLOOD COUNT 4.04 MIL/MM3 (4.00-5.30); RED CELL DISTRIBUTION WIDTH 15.2 % (11.6-17.2); WHITE BLOOD COUNT 4.7 TH/MM3 (4.0-11.0)
[2017-07-29 07:14] LABS: ALBUMIN 2.8 GM/DL (3.4-5.0); AST (GOT) 12 U/L (15-37); BICARBONATE 21.2 MEQ/L (21.0-32.0); BLOOD UREA NITROGEN 7 MG/DL (7-18); CALCIUM 8.5 MG/DL (8.5-10.1); CHLORIDE 109 MEQ/L (98-107); CREATININE 0.88 MG/DL (0.50-1.00); GLOMERULAR FILTRATION RATE 64 ML/MIN (>89); GLUCOSE,RANDOM 101 MG/DL (74-106); MAGNESIUM 1.7 MG/DL (1.5-2.5); SODIUM (NA) 142 MEQ/L (136-145)
[2017-07-29 07:15] LABS: ALT (GPT) 14 U/L (10-53); C-REACTIVE PROTEIN 0.88 MG/DL (0.00-0.30); PHOSPHORUS 3.1 MG/DL (2.5-4.9); RHEUMATOID FACTOR SCREEN NEGATIVE (NEGATIVE)
[2017-07-29 07:19] LABS: ALKALINE PHOSPHATASE 111 U/L (45-117); TOTAL BILIRUBIN ADULT 0.3 MG/DL (0.2-1.0); TOTAL PROTEIN 6.7 GM/DL (6.4-8.2)
[2017-07-29] MEDS: SODIUM CHLORIDE 0.9% FLUSH 10 ML FLUSH IV FLUSH SCH ×2 (09:00→21:00)
[2017-07-29] MEDS ORDERED: predniSONE 10 MG TAB PO SCH (09:00)
[2017-07-29] MEDS: LACTOBACILLUS ACIDOPHILUS TAB PO SCH ×3 (09:46→17:49)
[2017-07-29] MEDS: LOSARTAN 50 MG TAB PO SCH (09:46)
[2017-07-29] MEDS: VANCOMYCIN 500 MG VIAL (FOR ORAL USE ONLY) PO SCH ×4 (09:47→21:56)
[2017-07-29] MEDS: SODIUM CHLOR 0.9% 1000 ML INJ 1,000 ML IV SCH ×2 (09:49→20:18)
[2017-07-29 10:14] LABS: BANDS 12 % (0-6); LYMPHOCYTES 3 % (9-44); NEUTROPHIL # MANUAL DIFF 4.6 TH/MM3 (1.8-7.7); POLYS (SEG NEUTROPHILS) 85 % (16-70)
[2017-07-29 10:15] LABS: OVALOCYTES 1+ (NORMAL)
--- NOTE | 2017-07-29 11:49 | HHI.GIFU ---
Subjective Remarks Pt resting in bed Has not had any diarrhea today but has only been on clear liquids Denies nausea, vomiting, abdominal pain (Ruby Nix) Objective Vitals I&O Vital Signs Date Time Temp Pulse Resp B/P (MAP) Pulse Ox O2 Delivery O2 Flow Rate FiO2 07/29/17 08:12 97.7 71 17 135/58 (83) 98 07/29/17 04:00 97.5 69 18 149/73 (98) 96 07/29/17 04:00 Room Air 07/29/17 00:00 Room Air 07/29/17 00:00 97.8 66 16 132/68 (89) 95 07/28/17 20:00 98.1 69 14 138/63 (88) 95 07/28/17 20:00 Room Air 07/28/17 18:00 97.7 68 18 151/68 (95) 98 07/28/17 16:35 94 18 163/74 (103) 100 Room Air 07/28/17 16:35 07/28/17 11:56 95 18 148/67 (94) 97 Room Air I/O 07/28/17 07/28/17 07/28/17 07/29/17 07/29/17 07/29/17 07:00 15:00 23:00 07:00 15:00 23:00 Intake Total 1240 ml 1609 ml Output Total 4 ml Balance 1240 ml 1605 ml Intake Oral 240 ml 820 ml IV Total 1000 ml 789 ml Output Urine Total 4 ml # Bowel Movements 3 Laboratory Laboratory Tests Test 07/28/17 13:20 07/28/17 16:15 07/29/17 05:20 07/29/17 06:20 Urine Color YELLOW Urine Turbidity CLEAR Urine pH 5.5 Urine Specific [place] 1.009 Urine Protein NEG Urine Glucose (UA) NEG Urine Ketones NEG Urine Occult Blood NEG Urine Nitrite NEG Urine Bilirubin NEG Urine Urobilinogen LESS THAN 2.0 Urine Leukocyte Esterase NEG Urine RBC 1 Urine WBC LESS THAN 1 Urine Mucus FEW Microscopic Urinalysis Comment CULT NOT INDICATED Stool C. difficile Toxin (PCR) POSITIVE Stl C. difficile Toxin Epiderm 027 PRESUMPTIVE NEGATIVE Carcinoembryonic Antigen 2.8 CA 19-9 Antigen 5.8 Random Cortisol 7.3 White Blood Count 4.7 Red Blood Count 4.04 Hemoglobin 11.2 Hematocrit 34.3 Mean Corpuscular Volume 84.8 Mean Corpuscular Hemoglobin 27.7 Mean Corpuscular Hemoglobin Concent 32.7 Red Cell Distribution Width 15.2 Platelet Count 231 Mean Platelet Volume 10.5 CBC Comment AUTO DIFF Differential Total Cells Counted 100 Neutrophils % (Manual) 85 Band Neutrophils % 12 Lymphocytes % 3 Neutrophils # (Manual) 4.6 Differential Comment FINAL DIFF MANUAL Platelet Estimate NORMAL Platelet Morphology Comment CLUMPED Ovalocytes 1+ Blood Urea Nitrogen 7 Creatinine 0.88 Random Glucose 101 Total Protein 6.7 Albumin 2.8 Calcium Level 8.5 Phosphorus Level 3.1 Magnesium Level 1.7 Alkaline Phosphatase 111 Aspartate Amino Transf (AST/SGOT) 12 Alanine Aminotransferase (ALT/SGPT) 14 Total Bilirubin 0.3 Sodium Level 142 Potassium Level 3.5 Chloride Level 109 Carbon Dioxide Level 21.2 Anion Gap 12 Estimat Glomerular Filtration Rate 64 C-Reactive Protein 0.88 Lipase 108 Rheumatoid Factor Screen NEGATIVE Rheumatoid Factor Titer Erythrocyte Sedimentation Rate 40 Date/Time Source Procedure Growth Status 07/28/17 13:20 Stool Stool Cryptosporidium Exam Pending Received 07/28/17 13:20 Stool Stool Giardia Antigen (ALCIDES) Pending Received Imaging Last Impressions Abdomen/Pelvis CT 07/28/17 0000 Signed Impressions: CONCLUSION: 1. Large peritoneal mass as described above incompletely evaluated because of lack of intravenous and oral contrast. Physical Exam HEENT: Normocephalic; atraumatic CHEST: Even/unlabored CARDIAC: RRR ABDOMEN: Soft, nondistended, nontender; bowel sounds active EXTREMITIES: No clubbing, cyanosis, or edema. SKIN: Normal; no rash; no jaundice. PROBATION OFFICER: Alert and oriented times three. (Ruby Nix) Assessment and Plan Plan Assessment: - Diarrhea for the past 30 days, multiple episodes a day, states urgency, denies incontinence. Denies hematochezia and melena. Denies sick contacts, recent abx, recent travel, fever, chills. Denies associated abdominal pain. Also reports 2 episodes of emesis yesterday back to back and 2 other episodes of emesis over the past 30 days. Weight loss of 100 lbs over the past four years, intentionally has been losing 15 pounds a year but unintentionally lost 30 lbs over the past 6 months. Has had outpatient work up: colonoscopy [address] Hayes, reports normal exam. Thyroid recently checked and was normal. Reports stool studies by PCP, has not received results yet, she is unsure which studies were ordered Pt reports imaging study at [facility] revealed "dilated stomach outpouching" EGD (2002) --> Mild reflux esophagitis, hiatal hernia, mild gastritis (07/29) Stool samples reveal pt is C Diff positive, tx started with oral Vancomycin. CT abdomen and pelvis WO IV contrast --> Large peritoneal mass as described above incompletely evaluated because of lack of intravenous and oral contrast. Pt seen by GS who has ordered a repeat CT with contrast to further evaluate CA 19-9 5.8 CEA 2.8 Plan: Continue oral Vanco GS following - repeat CT with contrast ordered Request records from Dr. Hayes and outpatient imaging from [facility] Further recommendations based on findings of above and clinical course Pt has been seen and examined by myself and Dr. Dixon and this note is written on his behalf (Ruby Nix) Physician Comments Seen with Ruby. Plan as above. Had recent colonoscopy , will check results. Thank you for the consult. (Arjun Dixon MD) Ruby Nix Jul 29, 2017 11:49 Arjun Dixon MD Jul 29, 2017 23:10
--- NOTE | 2017-07-29 12:08 | HHI.PR ---
Subjective Remarks Still with diarrhea today nonbloody. Less abdominal pain. No fever or chills. No nausea vomiting able to tolerate food. Objective Vitals Vital Signs Date Time Temp Pulse Resp B/P (MAP) Pulse Ox O2 Delivery O2 Flow Rate FiO2 07/29/17 08:12 97.7 71 17 135/58 (83) 98 07/29/17 04:00 97.5 69 18 149/73 (98) 96 07/29/17 04:00 Room Air 07/29/17 00:00 Room Air 07/29/17 00:00 97.8 66 16 132/68 (89) 95 07/28/17 20:00 98.1 69 14 138/63 (88) 95 07/28/17 20:00 Room Air 07/28/17 18:00 97.7 68 18 151/68 (95) 98 07/28/17 16:35 94 18 163/74 (103) 100 Room Air 07/28/17 16:35 I/O 07/28/17 07/28/17 07/28/17 07/29/17 07/29/17 07/29/17 07:00 15:00 23:00 07:00 15:00 23:00 Intake Total 1240 ml 1609 ml Output Total 4 ml Balance 1240 ml 1605 ml Intake Oral 240 ml 820 ml IV Total 1000 ml 789 ml Output Urine Total 4 ml # Bowel Movements 3 Result Diagram: 07/29/17 0520 07/29/17 0520 Imaging Last Impressions Abdomen/Pelvis CT 07/28/17 0000 Signed Impressions: CONCLUSION: 1. Large peritoneal mass as described above incompletely evaluated because of lack of intravenous and oral contrast. Objective Remarks GENERAL: This is a very pleasant 71-year-old female, well-nourished, well- developed patient, in no apparent distress. CARDIOVASCULAR: Regular rate and rhythm without murmurs, gallops, or rubs. RESPIRATORY: Clear to auscultation. Breath sounds equal bilaterally. No wheezes , rales, or rhonchi. GASTROINTESTINAL: Abdomen soft, hard to palpation right upper quadrant, non- tender, nondistended. No hepato-splenomegaly, or palpable masses. No guarding. MUSCULOSKELETAL: Extremities without clubbing, cyanosis, or edema. No joint tenderness, effusion, or edema noted. No calf tenderness. Negative Homans sign bilaterally. NEUROLOGICAL: Awake and alert. Cranial nerves II through XII intact. Motor and sensory grossly within normal limits. Five out of 5 muscle strength in all muscle groups. Normal speech. A/P Problem List: (1) Hypokalemia ICD Code: E87.6 - Hypokalemia (2) Diarrhea ICD Code: R19.7 - Diarrhea, unspecified (3) Hyperemesis ICD Code: R11.10 - Vomiting, unspecified Assessment and Plan 71-year-old female admitted secondary to hyperemesis with diarrhea and unintentional weight loss and hypokalemia. Hypokalemia Replace and monitor High risk given patient's degree of diarrhea Follow on telemetry Diarrhea. C diff positive Unintentional weight loss Peritoneal mass large ~[address] A/P TSH is within normal limits Check stool ova and parasites Giardia screening C. difficile screen positive Autoimmune screening Cortisol level GI consulted Probiotic Started on vancomycin PO QID Monitor for any signs of improvement CT A/P without contrast reviewed and findings discussed with the patient and family at bedside. Patient has a large peritoneal mass ~ 14cm. Plan for CT A/P with contrast to better define the mass. General surgery consulted. Plan for mass biopsy poss on . Hyperlipidemia Hold statin for now Hypertension Continue Lomotil DVT prophylaxis Lovenox Discussed with the patient, family at bedside Mechelle Irwin MD Jul 29, 2017 12:08
[2017-07-29] MEDS ORDERED: DIATRIZOATE MEGLUM/DIATRIZOATE SOD 9 ML CUP PO ONE (14:30)
--- NOTE | 2017-07-29 14:39 | PD.CONS ---
cc: Gurinder Fitzgerald MD HPI Service General Surgery Consult Requested By Ruby LUCAS Reason for Consult Evaluation of large abdominal mass Primary Care Physician Gurinder Cortes MD History of Present Illness This is a 71 year old female with a past medical history of hypertension and dyslipidemia who presented to the ED yesterday with complains of ongoing diarrhea, abdominal pain, nausea and vomiting. She has been seeing her PCP about the diarrhea but nothing has been concluded on the etiology. The patient recently had a colonoscopy by Dr. Hayes which by report of the patient was normal. A CT abdomen/pelvis was completed which shows a large peritoneal mass. She has tested positive for C-diff since being admitted. Her sister is at the bedside. Of note the patient intentional lost about 100 pounds by diet and exercise modifications over the past 4 years. She has lost an unintentional additional 30 pounds just over the last 2 months. A General Surgery consultation has been requested. Review of Systems Constitutional: COMPLAINS OF: Weight loss, Change in appetite, DENIES: Fatigue Endocrine: DENIES: Polyuria, Polyphagia Eyes: DENIES: Diplopia Ears, nose, mouth, throat: DENIES: Hearing loss Respiratory: DENIES: Cough Cardiovascular: DENIES: Chest pain Gastrointestinal: COMPLAINS OF: Abdominal pain, Diarrhea, Nausea, Vomiting Genitourinary: DENIES: Abnormal vaginal bleeding Musculoskeletal: DENIES: Joint pain Integumentary: DENIES: Abnormal pigmentation Hematologic/lymphatic: DENIES: Bruising Immunologic/allergic: DENIES: Eczema Neurologic: DENIES: Abnormal gait, Headache Psychiatric: DENIES: Confusion, Mood changes, Depression Past Family Social History Past Medical History Hypertension Dyslipidemia Past Surgical History Laparoscopic hysterectomy Colonoscopy Reported Medications Lovastatin Losartan Aspirin Allergies: Coded Allergies: shellfish derived (Verified Allergy, Severe, Swelling, 07/28/17) sulfite (Verified Allergy, Severe, Hives, 07/28/17) penicillin G (Verified Allergy, Unknown, Hives, 07/28/17) Active Ordered Medications Current Medications Medications (Trade) Dose Ordered Sig/Elle Route Start Time Stop Time Status Last Admin Sodium Chloride 1,000 ml @ 100 mls/hr Q10H IV 07/28/17 14:18 07/29/17 09:49 (NS Flush) 2 ml UNSCH PRN IV FLUSH 07/28/17 14:30 (NS Flush) 2 ml BID IV FLUSH 07/28/17 21:00 07/28/17 21:54 (Zofran Odt) 4 mg Q6H PRN PO 07/28/17 15:30 (Lovenox Inj) 40 mg Q24H SQ 07/28/17 16:00 07/28/17 18:21 (Narcan Inj) 0.4 mg UNSCH PRN IV PUSH 07/28/17 14:30 (Phenergan) 25 mg Q4H PRN PO 07/28/17 15:15 (Lactinex) 1 tab TID PO 07/28/17 18:00 07/29/17 12:03 (Cozaar) 50 mg DAILY PO 07/29/17 09:00 07/29/17 09:46 (VANCOMYCIN for oral use only) 500 mg QID PO 07/28/17 21:00 07/29/17 12:03 ( Gastroview Liq) 18 ml ONCE ONCE PO 07/29/17 14:30 07/29/17 14:31 Family History Father had bladder cancer Brother at 62---he had esophagus/lung/colon cancer Social History Denies tobacco use Denies ETOH use Denies illicit drug use She is not . She does not have any children. She lives with her brother. Her sister lives her locally as well. She is independent with her ADLs. She drives. Physical Exam Vital Signs Vital Signs Date Time Temp Pulse Resp B/P (MAP) Pulse Ox O2 Delivery O2 Flow Rate FiO2 07/29/17 12:12 98.0 68 17 131/61 (84) 97 07/29/17 08:12 97.7 71 17 135/58 (83) 98 07/29/17 08:00 Room Air 07/29/17 04:00 97.5 69 18 149/73 (98) 96 07/29/17 04:00 Room Air 07/29/17 00:00 Room Air 07/29/17 00:00 97.8 66 16 132/68 (89) 95 07/28/17 20:00 98.1 69 14 138/63 (88) 95 07/28/17 20:00 Room Air 07/28/17 18:00 97.7 68 18 151/68 (95) 98 07/28/17 16:35 94 18 163/74 (103) 100 Room Air 07/28/17 16:35 Physical Exam GENERAL: Very pleasant 71 year old female resting in bed in no acute distress. SKIN: Warm and dry. HEAD: Atraumatic. Normocephalic. EYES: Pupils equal and round. No scleral icterus. No injection or drainage. ENT: No nasal bleeding or discharge. Mucous membranes pink and moist. NECK: Trachea midline. CARDIOVASCULAR: Regular rate and rhythm. RESPIRATORY: No accessory muscle use. Clear to auscultation. Breath sounds equal bilaterally. GASTROINTESTINAL: Abdomen soft, non-tender, nondistended. Obese. Healed laparoscopic scars. MUSCULOSKELETAL: Extremities without clubbing, cyanosis, or edema. No obvious deformities. NEUROLOGICAL: Awake and alert. No obvious cranial nerve deficits. Motor grossly within normal limits. Five out of 5 muscle strength in the arms and legs. Normal speech. PSYCHIATRIC: Appropriate mood and affect; insight and judgment normal. Laboratory Laboratory Tests Test 07/28/17 16:15 07/29/17 05:20 07/29/17 06:20 Carcinoembryonic Antigen 2.8 CA 19-9 Antigen 5.8 Random Cortisol 7.3 White Blood Count 4.7 Red Blood Count 4.04 Hemoglobin 11.2 Hematocrit 34.3 Mean Corpuscular Volume 84.8 Mean Corpuscular Hemoglobin 27.7 Mean Corpuscular Hemoglobin Concent 32.7 Red Cell Distribution Width 15.2 Platelet Count 231 Mean Platelet Volume 10.5 CBC Comment AUTO DIFF Differential Total Cells Counted 100 Neutrophils % (Manual) 85 Band Neutrophils % 12 Lymphocytes % 3 Neutrophils # (Manual) 4.6 Differential Comment FINAL DIFF MANUAL Platelet Estimate NORMAL Platelet Morphology Comment CLUMPED Ovalocytes 1+ Blood Urea Nitrogen 7 Creatinine 0.88 Random Glucose 101 Total Protein 6.7 Albumin 2.8 Calcium Level 8.5 Phosphorus Level 3.1 Magnesium Level 1.7 Alkaline Phosphatase 111 Aspartate Amino Transf (AST/SGOT) 12 Alanine Aminotransferase (ALT/SGPT) 14 Total Bilirubin 0.3 Sodium Level 142 Potassium Level 3.5 Chloride Level 109 Carbon Dioxide Level 21.2 Anion Gap 12 Estimat Glomerular Filtration Rate 64 C-Reactive Protein 0.88 Lipase 108 Rheumatoid Factor Screen NEGATIVE Rheumatoid Factor Titer Erythrocyte Sedimentation Rate 40 Date/Time Source Procedure Growth Status 07/28/17 13:20 Stool Stool Cryptosporidium Exam Pending Received 07/28/17 13:20 Stool Stool Giardia Antigen (ALCIDES) Pending Received Result Diagram: 07/29/17 0520 07/29/17 0520 Imaging Last 48 hours Impressions Abdomen/Pelvis CT 07/28/17 0000 Signed Impressions: CONCLUSION: 1. Large peritoneal mass as described above incompletely evaluated because of lack of intravenous and oral contrast. Assessment and Plan Assessment and Plan 71 year old female with abdominal pain; diarrhea; large peritoneal mass on CT -Will repeat CT with IV and PO contrast to better evaluate the area -Clear liquids -Will determine timing for laparoscopic biopsy after CT results; may need to wait until C-diff treatment completed -Diet as tolerated; NPO after MN on Friday -Thank you for this consult; We will continue to follow I CERTIFY AND ATTEST THAT I PERSONALLY SAW AND EXAMINED THE PATIENT. THE PATIENT OFFICE REP DOCUMENTED OUR VISIT AND ENTERED ORDERS IN THE EMR UNDER MY SUPERVISION. GURINDER FITZGERALD MD FACS. I WOULD NOT RECOMMEND SURGICAL INTERVENTION WITH ACTIVE C DIFF. CAN HAVE CT BIOPSY NOW OR ELECTIVE LAPAROSCOPIC BIOPSY AFTER C DIFF TREATED. Discussed Condition With Dr. Fitzgerald Ms. Johnson + sister at bedside Melody Rockwell PATIENT OFFICE REP/Yarn Carrier PATIENT OFFICE REP Jul 29, 2017 14:39 Gurinder Fitzgerald MD Jul 31, 2017 15:15
[2017-07-29] MEDS: ENOXAPARIN SODIUM 40 MG/0.4 ML SYRINGE SQ SCH (17:49)
[2017-07-29] MEDS ORDERED: IOHEXOL 350 MG/ML 10 ML VIAL (for RAD DIAG) IVCONTRAST ONE (19:29)
--- NOTE | 2017-07-29 19:54 | RADRPT ---
EXAM DATE: 07/29/2017 7:46 PM EDT AGE/SEX: 71 years / Female INDICATIONS: Evaluate mass. CLINICAL DATA: This is the patient's initial encounter. Patient reports that signs and symptoms have been present for 1 day and indicates a pain score of 0/10. MEDICAL/SURGICAL HISTORY: Hypertension. Renal calculi. Hysterectomy. ORAL CONTRAST: No oral contrast ingested. RADIATION DOSE: 13.22 CTDI (mGy) COMPARISON: No prior exams available for comparison. TECHNIQUE: Multiple contiguous axial images were obtained through the abdomen and pelvis following b olus infusion of 96 ml Omnipaque 350 (iohexol) nonionic water-soluble contrast as a single exam dos e. No oral contrast ingested. Using automated exposure control and adjustment of the mA and/or kV ac cording to patient size, the radiation dose was kept as low as reasonably achievable to obtain optima l diagnostic quality images. FINDINGS: The lower lungs are clear. Trace ascites is evident. Liver is free of focal defects. There is a large peritoneal mass measuring 10.5 cm in intimate association with the portal vein, pancreas, SMA and bailey perior mesenteric vein. The spared mesenteric artery does course through this mass remains patent. Th e superior mesenteric vein is probably occluded distally. The mass is in intimate association with th e celiac artery. There is no retroperitoneal component. There is a soft tissue component on the right and involves the small bowel and the right descending colon. Multiple parapelvic cysts are evident without renal obstruction. There is no pelvic component. There is no colonic obstruction with radiographic contrast passing into the colon. I see no bony meta static disease. CONCLUSION: 1. Large peritoneal mass within the mesentery associated with small bowel: And major vascular struct ures. Mass appears to infiltrate rather than displace suggesting lymphoma as a diagnosis. 2. There is no colonic obstruction. 3. There is no small bowel obstruction. 4. This mass would be amenable to large bore percutaneous biopsy for diagnosis if desired. Electronically signed by: Clement Bernal MD 07/29/2017 7:53 PM EDT
[2017-07-30] VITALS (12 sets, daily range): BP systolic 135–178; BP diastolic 64–84; PULSE 64–77; RESP 16–20; TEMP 97.2–98; O2SAT 96–99
[2017-07-30] MEDS: SODIUM CHLOR 0.9% 1000 ML INJ 1,000 ML IV SCH ×3 (06:18→18:49)
[2017-07-30] MEDS: LOSARTAN 50 MG TAB PO SCH (09:59)
[2017-07-30] MEDS: LACTOBACILLUS ACIDOPHILUS TAB PO SCH ×3 (09:59→18:48)
[2017-07-30] MEDS: VANCOMYCIN 500 MG VIAL (FOR ORAL USE ONLY) PO SCH ×4 (09:59→21:45)
[2017-07-30] MEDS: SODIUM CHLORIDE 0.9% FLUSH 10 ML FLUSH IV FLUSH SCH ×2 (10:04→21:00)
--- NOTE | 2017-07-30 10:58 | HHI.PR ---
Subjective Remarks Still with loose stool. Feels much better she was able to sleep overnight. No fever or chills. No abdominal pain. Plan for CT biopsy of the retroperitoneal mass. Objective Vitals Vital Signs Date Time Temp Pulse Resp B/P (MAP) Pulse Ox O2 Delivery O2 Flow Rate FiO2 07/30/17 08:11 97.7 67 16 144/67 (92) 98 07/30/17 04:08 64 07/30/17 04:00 97.3 68 18 135/84 (101) 96 07/30/17 04:00 Room Air 07/30/17 00:00 Room Air 07/30/17 00:00 97.8 72 18 135/64 (87) 97 07/29/17 23:46 70 07/29/17 22:09 74 07/29/17 20:00 97.5 78 18 135/63 (87) 97 07/29/17 20:00 Room Air 07/29/17 16:07 97.6 70 17 133/63 (86) 99 07/29/17 12:12 98.0 68 17 131/61 (84) 97 I/O 07/29/17 07/29/17 07/29/17 07/30/17 07/30/17 07/30/17 07:00 15:00 23:00 07:00 15:00 23:00 Intake Total 1609 ml 600 ml 1772 ml Output Total 4 ml Balance 1605 ml 600 ml 1772 ml Intake Oral 820 ml 600 ml 950 ml IV Total 789 ml 822 ml Output Urine Total 4 ml # Voids 3 4 # Bowel Movements 3 1 2 Result Diagram: 07/29/17 0520 07/29/17 0520 Imaging Last Impressions Abdomen/Pelvis CT 07/29/17 0000 Signed Impressions: CONCLUSION: 1. Large peritoneal mass within the mesentery associated with small bowel: And major vascular structures. Mass appears to infiltrate rather than displace sug gesting lymphoma as a diagnosis. 2. There is no colonic obstruction. 3. There is no small bowel obstruction. 4. This mass would be amenable to large bore percutaneous biopsy for diagnosis if desired. Objective Remarks GENERAL: This is a very pleasant 71-year-old female, well-nourished, well- developed patient, in no apparent distress. CARDIOVASCULAR: Regular rate and rhythm without murmurs, gallops, or rubs. RESPIRATORY: Clear to auscultation. Breath sounds equal bilaterally. No wheezes , rales, or rhonchi. GASTROINTESTINAL: Abdomen soft, hard to palpation right upper quadrant, non- tender, nondistended. No hepato-splenomegaly, or palpable masses. No guarding. MUSCULOSKELETAL: Extremities without clubbing, cyanosis, or edema. No joint tenderness, effusion, or edema noted. No calf tenderness. Negative Homans sign bilaterally. NEUROLOGICAL: Awake and alert. Cranial nerves II through XII intact. Motor and sensory grossly within normal limits. Five out of 5 muscle strength in all muscle groups. Normal speech. A/P Problem List: (1) Hypokalemia ICD Code: E87.6 - Hypokalemia (2) Diarrhea ICD Code: R19.7 - Diarrhea, unspecified (3) Hyperemesis ICD Code: R11.10 - Vomiting, unspecified Assessment and Plan 71-year-old female admitted secondary to hyperemesis with diarrhea and unintentional weight loss and hypokalemia. Hypokalemia Replace and monitor High risk given patient's degree of diarrhea Follow on telemetry Diarrhea. C diff positive Unintentional weight loss Peritoneal mass large ~[address] A/P TSH is within normal limits Check stool ova and parasites Giardia screening C. difficile screen positive Autoimmune screening Cortisol level GI consulted Probiotic Started on vancomycin PO QID Monitor for any signs of improvement CT A/P without contrast reviewed and findings discussed with the patient and family at bedside. Patient has a large peritoneal mass ~ 14cm. CT A/P with contrast reviewed, shows large mesenteric mass, poss lymphoma. General surgery consulted. Plan for mass biopsy poss on . IR consuklted for CT guided biopsy. Large bore biopsy can le done at later time after patient recovers from C diff. Patient agrees with the plan. Hyperlipidemia Hold statin for now Hypertension Continue Lomotil DVT prophylaxis Lovenox Discussed with the patient, family at bedside Mechelle Irwin MD Jul 30, 2017 10:58
--- NOTE | 2017-07-30 12:54 | HHI.GIFU ---
Subjective Remarks Pt in bedside chair Denies nausea, vomiting, abdominal pain Tolerating PO States diarrhea seems to be slowing down, still with loose stool but overall improving Has decided to do biopsy of mass when infection clears (Ruby Nix) Objective Vitals I&O Vital Signs Date Time Temp Pulse Resp B/P (MAP) Pulse Ox O2 Delivery O2 Flow Rate FiO2 07/30/17 08:30 Room Air 07/30/17 08:11 97.7 67 16 144/67 (92) 98 07/30/17 08:00 77 07/30/17 04:08 64 07/30/17 04:00 97.3 68 18 135/84 (101) 96 07/30/17 04:00 Room Air 07/30/17 00:00 Room Air 07/30/17 00:00 97.8 72 18 135/64 (87) 97 07/29/17 23:46 70 07/29/17 22:09 74 07/29/17 20:00 97.5 78 18 135/63 (87) 97 07/29/17 20:00 Room Air 07/29/17 16:07 97.6 70 17 133/63 (86) 99 I/O 07/29/17 07/29/17 07/29/17 07/30/17 07/30/17 07/30/17 07:00 15:00 23:00 07:00 15:00 23:00 Intake Total 1609 ml 600 ml 1772 ml Output Total 4 ml Balance 1605 ml 600 ml 1772 ml Intake Oral 820 ml 600 ml 950 ml IV Total 789 ml 822 ml Output Urine Total 4 ml # Voids 3 4 # Bowel Movements 3 1 2 Laboratory Date/Time Source Procedure Growth Status 07/28/17 13:20 Stool Stool Cryptosporidium Exam - Final NEGATIVE - NO CRYPTOSPORIDIUM ANTIGEN... Complete 07/28/17 13:20 Stool Stool Giardia Antigen (ALCIDES) - Final NEGATIVE - NO GIARDIA ANTIGEN DETECTE... Complete Imaging Last Impressions Abdomen/Pelvis CT 07/29/17 0000 Signed Impressions: CONCLUSION: 1. Large peritoneal mass within the mesentery associated with small bowel: And major vascular structures. Mass appears to infiltrate rather than displace sug gesting lymphoma as a diagnosis. 2. There is no colonic obstruction. 3. There is no small bowel obstruction. 4. This mass would be amenable to large bore percutaneous biopsy for diagnosis if desired. Physical Exam HEENT: Normocephalic; atraumatic CHEST: Even/unlabored CARDIAC: RRR ABDOMEN: Soft, nondistended, nontender; bowel sounds active EXTREMITIES: No clubbing, cyanosis, or edema. SKIN: Normal; no rash; no jaundice. KETTLE OPERATOR: Alert and oriented times three. (Ruby Nix) Assessment and Plan Plan Assessment: - Diarrhea for the past 30 days, multiple episodes a day, states urgency, denies incontinence. Denies hematochezia and melena. Denies sick contacts, recent abx, recent travel, fever, chills. Denies associated abdominal pain. Also reports 2 episodes of emesis yesterday back to back and 2 other episodes of emesis over the past 30 days. Weight loss of 100 lbs over the past four years, intentionally has been losing 15 pounds a year but unintentionally lost 30 lbs over the past 6 months. Has had outpatient work up: colonoscopy [address] Hayes, reports normal exam. Thyroid recently checked and was normal. Reports stool studies by PCP, has not received results yet, she is unsure which studies were ordered Pt reports imaging study at [facility] revealed "dilated stomach outpouching" EGD (2002) --> Mild reflux esophagitis, hiatal hernia, mild gastritis (07/29) Stool samples reveal pt is C Diff positive, tx started with oral Vancomycin. CT abdomen and pelvis WO IV contrast --> Large peritoneal mass as described above incompletely evaluated because of lack of intravenous and oral contrast. Pt seen by GS who has ordered a repeat CT with contrast to further evaluate CA 19-9 5.8 CEA 2.8 (07/30) Diarrhea improving, pt remains on oral Vanco. Pt waiting on infection to clear for liver biopsy. Plan: Continue treatment for C. Diff EGD can be done on outpatient basis Biopsy per GS Our service will sign off, please reconsult as needed Have pt follow up with GI after DC Pt has been seen and examined by myself and Dr. Dixon and this note is written on his behalf (Ruby Nix) Physician Comments Plan as above, please notify us if needed again. (Arjun Dixon MD) Ruby Nix Jul 30, 2017 12:54 Arjun Dixon MD Jul 30, 2017 13:54
[2017-07-30] MEDS: ENOXAPARIN SODIUM 40 MG/0.4 ML SYRINGE SQ SCH (16:19)
[2017-07-30] MEDS ORDERED: LORazepam 0.5 MG TAB PO PRN (17:30)
[2017-07-30] MEDS ORDERED: ENALAPRILAT 2.5 MG/2 ML VIAL IV PUSH PRN (17:30)
--- NOTE | 2017-07-30 18:00 | HHI.PR ---
cc: Gurinder Fitzgerald MD Subjective Subjective Notes Up to chair Has several questions about CT guided bx vs lap bx Objective Vitals/I&O Vital Signs Date Time Temp Pulse Resp B/P (MAP) Pulse Ox O2 Delivery O2 Flow Rate FiO2 07/30/17 17:20 97.2 74 18 177/77 (110) 98 07/30/17 08:30 Room Air Labs Date/Time Source Procedure Growth Status 07/28/17 13:20 Stool Stool Cryptosporidium Exam - Final NEGATIVE - NO CRYPTOSPORIDIUM ANTIGEN... Complete 07/28/17 13:20 Stool Stool Giardia Antigen (ALCIDES) - Final NEGATIVE - NO GIARDIA ANTIGEN DETECTE... Complete Radiology Last 48 hours Impressions Abdomen/Pelvis CT 07/28/17 0000 Signed Impressions: CONCLUSION: 1. Large peritoneal mass as described above incompletely evaluated because of lack of intravenous and oral contrast. Cardiovascular: Regular Lungs: Clear Abdomen: Non-distended, Non-tender Extremities: No edema A/P Assessment and Plan 71 year old female with recent weight loss; CT findings of large mass -Patient has decided on CT guided bx -Will plan for tomorrow -NPO after MN for procedure -Hold anticoagulation -Based of pathology results--- if patient does need [facility] can arrange as outpatient -Discussed with patient, her nephew and nephew's girlfriend Kay who is an RN I CERTIFY AND ATTEST THAT I PERSONALLY SAW AND EXAMINED THE PATIENT. THE TWISTER TENDER DOCUMENTED OUR VISIT AND ENTERED ORDERS IN THE EMR UNDER MY SUPERVISION. GURINDER FITZGERALD MD FACS. PT WANTS CT GUIDED BIOPSY. WILL ARRANGE WITH RADIOLOGY. IF NONDIAGNOSTIC WILL NEED LAPAROSCOPIC BIOPSY AFTER C DIFF RESOLVED. Melody Rockwell TWISTER TENDER/Motorcycle Delivery Driver TWISTER TENDER Jul 30, 2017 18:00 Gurinder Fitzgerald MD Jul 31, 2017 15:16
[2017-07-30] MEDS: hydrALAZINE HCL 10 MG TAB PO PRN (18:49)
[2017-07-31] VITALS (8 sets, daily range): BP systolic 130–152; BP diastolic 60–86; PULSE 68–74; RESP 16–20; TEMP 97.1–97.7; O2SAT 96–98
[2017-07-31] MEDS: SODIUM CHLOR 0.9% 1000 ML INJ 1,000 ML IV SCH ×2 (04:21→15:41)
[2017-07-31 05:51] LABS: AUTOMATED NEUTROPHIL # 4.3 TH/MM3 (1.8-7.7); BASOPHIL % 0.8 % (0.0-2.0); EOSINOPHIL # 0.1 TH/MM3 (0-0.4); EOSINOPHIL % 2.6 % (0.0-4.0); HEMATOCRIT 37.5 % (35.0-46.0); HEMOGLOBIN 12.4 GM/DL (11.6-15.3); LYMPH % 9.8 % (9.0-44.0); LYMPHOCYTE # 0.5 TH/MM3 (1.0-4.8); MEAN CELL VOLUME 84.2 FL (80.0-100.0); MEAN CORPUSCULAR HEMOGLOBIN 27.9 PG (27.0-34.0); MEAN CORPUSCULAR HGB CONC 33.1 % (32.0-36.0); MEAN PLATELET VOLUME 9.8 FL (7.0-11.0); MONO % 5.5 % (0.0-8.0); MONOCYTE # 0.3 TH/MM3 (0-0.9); NEUT % 81.3 % (16.0-70.0); PLATELET COUNT 254 TH/MM3 (150-450); RED BLOOD COUNT 4.45 MIL/MM3 (4.00-5.30); RED CELL DISTRIBUTION WIDTH 15.9 % (11.6-17.2); WHITE BLOOD COUNT 5.3 TH/MM3 (4.0-11.0)
[2017-07-31 05:52] LABS: INTERNATIONAL NORMALIZED RATIO 1.1 RATIO; PROTHROMBIN TIME - PATIENT 11.1 SEC (9.8-11.6)
[2017-07-31 06:14] LABS: BICARBONATE 21.2 MEQ/L (21.0-32.0); CALCIUM 8.2 MG/DL (8.5-10.1); CREATININE 0.72 MG/DL (0.50-1.00); MAGNESIUM 1.6 MG/DL (1.5-2.5)
[2017-07-31] MEDS: POTASSIUM CHLOR 20 MEQ PREMIX 100 ML IV SCH ×3 (07:00→13:02)
--- NOTE | 2017-07-31 08:16 | HHI.PR ---
cc: Gurinder Fitzgerald MD Subjective Subjective Notes Up to chair Awaiting CT guided bx Objective Vitals/I&O Vital Signs Date Time Temp Pulse Resp B/P (MAP) Pulse Ox O2 Delivery O2 Flow Rate FiO2 07/31/17 04:19 97.7 72 20 140/65 (90) 96 07/30/17 21:00 Room Air Labs Laboratory Tests Test 07/31/17 04:54 White Blood Count 5.3 Red Blood Count 4.45 Hemoglobin 12.4 Hematocrit 37.5 Mean Corpuscular Volume 84.2 Mean Corpuscular Hemoglobin 27.9 Mean Corpuscular Hemoglobin Concent 33.1 Red Cell Distribution Width 15.9 Platelet Count 254 Mean Platelet Volume 9.8 Neutrophils (%) (Auto) 81.3 Lymphocytes (%) (Auto) 9.8 Monocytes (%) (Auto) 5.5 Eosinophils (%) (Auto) 2.6 Basophils (%) (Auto) 0.8 Neutrophils # (Auto) 4.3 Lymphocytes # (Auto) 0.5 Monocytes # (Auto) 0.3 Eosinophils # (Auto) 0.1 Basophils # (Auto) 0.0 CBC Comment DIFF FINAL Differential Comment Prothrombin Time 11.1 Prothromb Time International Ratio 1.1 Blood Urea Nitrogen 3 Creatinine 0.72 Random Glucose 81 Calcium Level 8.2 Magnesium Level 1.6 Sodium Level 144 Potassium Level 2.9 Chloride Level 110 Carbon Dioxide Level 21.2 Anion Gap 13 Estimat Glomerular Filtration Rate 80 Date/Time Source Procedure Growth Status 07/28/17 13:20 Stool Stool Cryptosporidium Exam - Final NEGATIVE - NO CRYPTOSPORIDIUM ANTIGEN... Complete 07/28/17 13:20 Stool Stool Giardia Antigen (ALCIDES) - Final NEGATIVE - NO GIARDIA ANTIGEN DETECTE... Complete Radiology Last 48 hours Impressions Abdomen/Pelvis CT 07/28/17 0000 Signed Impressions: CONCLUSION: 1. Large peritoneal mass as described above incompletely evaluated because of lack of intravenous and oral contrast. Cardiovascular: Regular Lungs: Clear Abdomen: Non-distended, Non-tender Extremities: No edema A/P Assessment and Plan 71 year old female with recent weight loss; CT findings of large mass -Patient has decided on CT guided bx ----going today -NPO after MN for procedure -Hold anticoagulation -Based of pathology results--- if patient does need [facility] can arrange as outpatient -Discussed with patient and Alka who is an RN I CERTIFY AND ATTEST THAT I PERSONALLY SAW AND EXAMINED THE PATIENT. THE GLUING PRESSMAN DOCUMENTED OUR VISIT AND ENTERED ORDERS IN THE EMR UNDER MY SUPERVISION. GURINDER FITZGERALD MD FACS. OK TO DC. WILL FU IN OFFICE NEXT WEEK. Melody Rockwell. GLUING PRESSMAN/Buckle Assembler GLUING PRESSMAN Jul 31, 2017 08:16 Gurinder Fitzgerald MD Jul 31, 2017 15:19
[2017-07-31] MEDS: SODIUM CHLORIDE 0.9% FLUSH 10 ML FLUSH IV FLUSH SCH ×2 (09:00→21:00)
[2017-07-31] MEDS: VANCOMYCIN 500 MG VIAL (FOR ORAL USE ONLY) PO SCH ×4 (09:13→23:09)
[2017-07-31] MEDS: LOSARTAN 50 MG TAB PO SCH (09:13)
[2017-07-31] MEDS: LACTOBACILLUS ACIDOPHILUS TAB PO SCH ×3 (09:13→18:16)
[2017-07-31] MEDS ORDERED: DIATRIZOATE MEGLUM/DIATRIZOATE SOD 9 ML CUP PO ONE (13:15)
[2017-07-31] MEDS ORDERED: LORazepam 2 MG/ML VIAL ONE (13:36)
[2017-07-31] MEDS ORDERED: LACT PO (14:20)
[2017-07-31] MEDS ORDERED: VANC500I3 PO (14:20)
--- NOTE | 2017-07-31 14:20 | HHI.DS ---
Discharge Summary Admission Date Jul 28, 2017 at 14:31 Admitting Diagnosis Intractable nausea vomiting/Diarrha, metabolic derangement (1) Hypokalemia ICD Code: E87.6 - Hypokalemia (2) Diarrhea ICD Code: R19.7 - Diarrhea, unspecified (3) Hyperemesis ICD Code: R11.10 - Vomiting, unspecified Brief History - From Admission Mrs. Johnson is a 71 year old female. She has come into the hospital today due to hyperemesis and diarrhea. She reports in the past month she has had persistent diarrhea which appears to be worsening. She has a 20 pound weight loss within that time. For about 1 year she has been having occasional diarrhea. Etiology/source is not known. She does not recall any point that the consistency of her stool has been greasy or oily, stools are described as watery, not pale or white. Gallbladder workup as an outpatient has been negative. Pancreas workup was negative. She has had a hysterectomy in January 2017. She is also had an episode of food poisoning/toxicity about 2 years ago. Hypokalemia is present due to her degree of diarrhea. As an outpatient, with her primary care physician, she has been having a workup of her diarrhea. No findings of thyroid disease. Colonoscopy has been performed and she reports that the colonoscopy was within normal limits. She has not had an EGD. She has not tried any treatment such as probiotics, steroids, Imodium or Lomotil. No other complaints at this time. CBC/BMP: 07/31/17 0454 07/31/17 0454 Significant Findings Laboratory Tests Test 07/28/17 16:15 07/29/17 05:20 07/29/17 06:20 07/31/17 04:54 Hemoglobin 11.2 GM/DL (11.6-15.3) Hematocrit 34.3 % (35.0-46.0) Neutrophils % (Manual) 85 % (16-70) Band Neutrophils % 12 % (0-6) Lymphocytes % 3 % (9-44) Platelet Morphology Comment CLUMPED (NORMAL) Ovalocytes 1+ (NORMAL) Albumin 2.8 GM/DL (3.4-5.0) Aspartate Amino Transf (AST/SGOT) 12 U/L (15-37) Chloride Level 109 MEQ/L (98-107) 110 MEQ/L (98-107) Estimat Glomerular Filtration Rate 64 ML/MIN (>89) 80 ML/MIN (>89) C-Reactive Protein 0.88 MG/DL (0.00-0.30) Erythrocyte Sedimentation Rate 40 mm/hr (0-30) Neutrophils (%) (Auto) 81.3 % (16.0-70.0) Lymphocytes # (Auto) 0.5 TH/MM3 (1.0-4.8) Blood Urea Nitrogen 3 MG/DL (7-18) Calcium Level 8.2 MG/DL (8.5-10.1) Potassium Level 2.9 MEQ/L (3.5-5.1) PE at Discharge GENERAL: This is a very pleasant 71-year-old female, well-nourished, well- developed patient, in no apparent distress. CARDIOVASCULAR: Regular rate and rhythm without murmurs, gallops, or rubs. RESPIRATORY: Clear to auscultation. Breath sounds equal bilaterally. No wheezes , rales, or rhonchi. GASTROINTESTINAL: Abdomen soft, hard to palpation right upper quadrant, non- tender, nondistended. No hepato-splenomegaly, or palpable masses. No guarding. MUSCULOSKELETAL: Extremities without clubbing, cyanosis, or edema. No joint tenderness, effusion, or edema noted. No calf tenderness. Negative Homans sign bilaterally. NEUROLOGICAL: Awake and alert. Cranial nerves II through XII intact. Motor and sensory grossly within normal limits. Five out of 5 muscle strength in all muscle groups. Normal speech. Mechelle Irwin MD Jul 31, 2017 14:20
[2017-07-31] MEDS ORDERED: ACETAMINOPHEN/HYDROcodone 325 MG/5 MG TAB PO PRN ×2 (15:30)
[2017-07-31] MEDS: ENOXAPARIN SODIUM 40 MG/0.4 ML SYRINGE SQ SCH (15:41)
--- NOTE | 2017-07-31 17:34 | HHI.PR ---
Subjective Remarks The patient was seen earlier today. She went for biopsy. Seen after the biopsy. Patient complained of some back pain she received [place]. She is a little bit confused after [place]. Back pain improved. Says she had normal formed bowel movement in the morning today no more diarrhea. Still with some nausea however not today she was nothing by mouth for biopsy. No fever or chills. No abdominal pain. Potassium is low replaced. Objective Vitals Vital Signs Date Time Temp Pulse Resp B/P (MAP) Pulse Ox O2 Delivery O2 Flow Rate FiO2 07/31/17 12:30 97.6 73 17 152/74 (100) 98 07/31/17 08:12 97.5 73 17 151/74 (99) 98 07/31/17 04:19 97.7 72 20 140/65 (90) 96 07/31/17 03:55 73 07/31/17 00:00 97.6 69 16 130/60 (83) 98 07/30/17 23:57 68 07/30/17 21:00 Room Air 07/30/17 20:54 97.6 69 20 162/72 (102) 99 07/30/17 19:59 75 07/30/17 18:49 162/74 (103) I/O 07/30/17 07/30/17 07/30/17 07/31/17 07/31/17 07/31/17 07:00 15:00 23:00 07:00 15:00 23:00 Intake Total 1772 ml 1662 ml 1240 ml 200 ml 100 ml Balance 1772 ml 1662 ml 1240 ml 200 ml 100 ml Intake Oral 950 ml 420 ml 240 ml IV Total 822 ml 1242 ml 1000 ml 200 ml 100 ml # Voids 4 12 3 # Bowel Movements 2 3 1 Result Diagram: 07/31/17 0454 07/31/17 0454 Imaging Last Impressions Abdomen/Pelvis CT 07/29/17 0000 Signed Impressions: CONCLUSION: 1. Large peritoneal mass within the mesentery associated with small bowel: And major vascular structures. Mass appears to infiltrate rather than displace sug gesting lymphoma as a diagnosis. 2. There is no colonic obstruction. 3. There is no small bowel obstruction. 4. This mass would be amenable to large bore percutaneous biopsy for diagnosis if desired. Objective Remarks GENERAL: This is a very pleasant 71-year-old female, well-nourished, well- developed patient, in no apparent distress. CARDIOVASCULAR: Regular rate and rhythm without murmurs, gallops, or rubs. RESPIRATORY: Clear to auscultation. Breath sounds equal bilaterally. No wheezes , rales, or rhonchi. GASTROINTESTINAL: Abdomen soft, hard to palpation right upper quadrant, non- tender, nondistended. No hepato-splenomegaly, or palpable masses. No guarding. MUSCULOSKELETAL: Extremities without clubbing, cyanosis, or edema. No joint tenderness, effusion, or edema noted. No calf tenderness. Negative Homans sign bilaterally. NEUROLOGICAL: Awake and alert. Cranial nerves II through XII intact. Motor and sensory grossly within normal limits. Five out of 5 muscle strength in all muscle groups. Normal speech. Procedures S/p peritoneal mass CT guided biopsy 07/31/17 by IR. A/P Problem List: (1) Hypokalemia ICD Code: E87.6 - Hypokalemia (2) Diarrhea ICD Code: R19.7 - Diarrhea, unspecified (3) Hyperemesis ICD Code: R11.10 - Vomiting, unspecified Assessment and Plan 71-year-old female admitted secondary to hyperemesis with diarrhea and unintentional weight loss and hypokalemia. Hypokalemia Replace and monitor High risk given patient's degree of diarrhea Follow on telemetry Diarrhea. C diff positive Unintentional weight loss Large peritoneal mass of ~[address] A/P with contrast TSH is within normal limits Check stool ova and parasites Giardia screening C. difficile screen positive Autoimmune screening Cortisol level GI consulted Probiotic Started on vancomycin PO QID Monitor for any signs of improvement CT A/P without contrast reviewed and findings discussed with the patient and family at bedside. Patient has a large peritoneal mass ~ 14cm. CT A/P with contrast reviewed, shows large mesenteric mass, poss lymphoma. General surgery consulted. S/p peritoneal mass CT guided biopsy 07/31/17 by IR. Had some pain after the biopsy received norco and she is confused Hyperlipidemia Hold statin for now Hypertension Continue Lomotil DVT prophylaxis Lovenox Discussed with the patient, family at bedside Mechelle Irwin MD Jul 31, 2017 17:34
[2017-07-31] MEDS: SODIUM CHLOR 0.45% 1000 ML INJ 1,000 ML IV SCH ×2 (18:16→23:08)
[2017-07-31 21:13] LABS: BICARBONATE 22.4 MEQ/L (21.0-32.0); CALCIUM 8.2 MG/DL (8.5-10.1); CREATININE 0.76 MG/DL (0.50-1.00)
[2017-08-01] VITALS (10 sets, daily range): BP systolic 146–170; BP diastolic 68–79; PULSE 61–83; RESP 16–20; TEMP 97.4–98.2; O2SAT 96–99
--- NOTE | 2017-08-01 07:29 | RADRPT ---
EXAM DATE: 07/31/2017 2:52 PM EDT AGE/SEX: 71 years / Female INDICATIONS: Mesenteric mass. CLINICAL DATA: This is the patient's initial encounter. Patient reports that signs and symptoms have been present for 1 day and indicates a pain score of 0/10. MEDICAL/SURGICAL HISTORY: Hypertension. Hysterectomy. COMPARISON: No prior exams available for comparison. BIOPSY SITE: . . mesenteric MEDICATION(S): 200mcg fentanyl (Sublimaze) IV 2mg lorazepam (Ativan) IV DEVICE(S): 18 gauge Temno core biopsy needle 9cm . . PROCEDURE: CT guided . . mesenteric biopsy Prior to the procedure informed consent was obtained. Any appropriate prior imaging studies were rev iewed. Using automated exposure control and adjustment of the mA and/or kV according to patient size, radiat ion dose was kept as low as reasonably achievable to obtain optimal diagnostic quality images. DICOM format image data is available electronically for review and comparison. The site was prepped in a sterile fashion. Full sterile technique was used, including cap, mask, curt rile gloves and gown and a large sterile sheet. Hand hygiene and 2% chlorhexidine and/or betadine/al cohol prep was utilized per protocol for cutaneous antisepsis. The skin and subcutaneous tissues wer e infiltrated with local anesthetic solution. With CT guidance the previously identified target was localized. Biopsy was performed using the presc ribed needle as above. Adequate hemostasis was obtained with compression at the puncture site. Follow-up CT scan reveals no hemorrhage. The patient tolerated the procedure well and there were no complications. The patient was returned to the Radiology Outpatient Unit in stable condition. FINDINGS: Successful CT-guided 18-gauge core biopsy of large mesenteric mass as described above. CONCLUSION: 1. Uncomplicated CT guided biopsy. Electronically signed by: Jerman Pritchard MD 08/01/2017 7:27 AM EDT
--- NOTE | 2017-08-01 10:18 | HHI.PR ---
cc: Elmer Fields MD Subjective Subjective Notes Unsure of what kind of diet she should be eating No pain Objective Vitals/I&O Vital Signs Date Time Temp Pulse Resp B/P (MAP) Pulse Ox O2 Delivery O2 Flow Rate FiO2 08/01/17 08:00 97.7 77 20 167/77 (107) 97 07/31/17 19:00 Nasal Cannula Labs Laboratory Tests Test 07/31/17 14:15 07/31/17 20:04 Blood Urea Nitrogen 3 Creatinine 0.76 Random Glucose 96 Calcium Level 8.2 Sodium Level 142 Potassium Level 3.3 Chloride Level 108 Carbon Dioxide Level 22.4 Anion Gap 12 Estimat Glomerular Filtration Rate 75 Date/Time Source Procedure Growth Status 07/28/17 13:20 Stool Stool Cryptosporidium Exam - Final NEGATIVE - NO CRYPTOSPORIDIUM ANTIGEN... Complete 07/28/17 13:20 Stool Stool Giardia Antigen (ALCIDES) - Final NEGATIVE - NO GIARDIA ANTIGEN DETECTE... Complete Radiology Last 48 hours Impressions Abdomen/Pelvis CT 07/28/17 0000 Signed Impressions: CONCLUSION: 1. Large peritoneal mass as described above incompletely evaluated because of lack of intravenous and oral contrast. Cardiovascular: Regular Lungs: Clear Abdomen: Other (bx site with c/d/i bandage ) Extremities: No edema A/P Assessment and Plan 71 year old female with recent weight loss; CT findings of large mass -S/p CT guided bx -Await pathology -Regular diet--- encouraged small more frequent meals that are bland -Based of pathology results--- if patient does need [facility] can arrange as outpatient -Discussed with patient - clear for DC PATHOLOGY CONFIRMS B-CELL LYMPHOMA. PT NOT AWARE OF RESULTS. WILL NOTIFY FAMILY FRIDAY. WILL NEED OUTPT APPT WITH ONCOLOGY. WILL ASK FAMILY WHICH ONCOLOGIST THEY WANT HER TO SEE. CAN SCHEDULE PORT PLACEMENT OUTPT WELL. OK FOR DC FROM SURGICAL STANDPOINT. Melody Rockwell HISTORY INSTRUCTOR/Fiberglass Roving Winder HISTORY INSTRUCTOR Aug 01, 2017 10:18 Elmer Fields MD Aug 01, 2017 21:16
[2017-08-01] MEDS: LOSARTAN 50 MG TAB PO SCH (11:15)
[2017-08-01] MEDS: LACTOBACILLUS ACIDOPHILUS TAB PO SCH ×3 (11:15→17:55)
[2017-08-01] MEDS: VANCOMYCIN 500 MG VIAL (FOR ORAL USE ONLY) PO SCH ×4 (11:15→22:31)
[2017-08-01] MEDS: SODIUM CHLORIDE 0.9% FLUSH 10 ML FLUSH IV FLUSH SCH ×2 (11:16→22:31)
[2017-08-01] MEDS: hydrALAZINE HCL 10 MG TAB PO PRN (12:59)
--- NOTE | 2017-08-01 15:50 | HHI.PR ---
Subjective Remarks The patient today. She had diarrhea overnight. No more nausea or vomiting however not eating much. No fever chills overnight. No much of the pain. Blood pressure is elevated however. Denies back pain. Patient is anxious because she was told she needs a port placement per surgical team. Therefore patient feels good for only if she is needs to be depending on biopsy report. Otherwise feels better today. She is more awake. Objective Vitals Vital Signs Date Time Temp Pulse Resp B/P (MAP) Pulse Ox O2 Delivery O2 Flow Rate FiO2 08/01/17 12:00 98.0 70 20 170/79 (109) 98 08/01/17 08:00 97.7 77 20 167/77 (107) 97 08/01/17 07:37 67 08/01/17 04:00 63 08/01/17 04:00 97.4 65 16 162/72 (102) 97 08/01/17 00:00 97.5 67 18 146/68 (94) 96 08/01/17 00:00 66 07/31/17 21:10 97.1 70 16 131/86 (101) 96 07/31/17 20:00 74 07/31/17 19:00 98 Nasal Cannula 07/31/17 16:12 97.7 68 18 146/70 (95) 98 I/O 07/31/17 07/31/17 07/31/17 08/01/17 08/01/17 08/01/17 07:00 15:00 23:00 07:00 15:00 23:00 Intake Total 1240 ml 200 ml 344 ml 360 ml Balance 1240 ml 200 ml 344 ml 360 ml Intake Oral 240 ml 360 ml IV Total 1000 ml 200 ml 344 ml # Voids 3 3 1 # Bowel Movements 1 2 0 Result Diagram: 07/31/17 0454 07/31/172003 Imaging Last Impressions Abdomen Biopsy CT 07/31/17 0000 Signed Impressions: CONCLUSION: 1. Uncomplicated CT guided biopsy. Abdomen/Pelvis CT 07/29/17 0000 Signed Impressions: CONCLUSION: 1. Large peritoneal mass within the mesentery associated with small bowel: And major vascular structures. Mass appears to infiltrate rather than displace sug gesting lymphoma as a diagnosis. 2. There is no colonic obstruction. 3. There is no small bowel obstruction. 4. This mass would be amenable to large bore percutaneous biopsy for diagnosis if desired. Objective Remarks GENERAL: This is a very pleasant 71-year-old female, well-nourished, well- developed patient, in no apparent distress. CARDIOVASCULAR: Regular rate and rhythm without murmurs, gallops, or rubs. RESPIRATORY: Clear to auscultation. Breath sounds equal bilaterally. No wheezes , rales, or rhonchi. GASTROINTESTINAL: Abdomen soft, hard to palpation right upper quadrant, non- tender, nondistended. No hepato-splenomegaly, or palpable masses. No guarding. MUSCULOSKELETAL: Extremities without clubbing, cyanosis, or edema. No joint tenderness, effusion, or edema noted. No calf tenderness. Negative Homans sign bilaterally. NEUROLOGICAL: Awake and alert. Cranial nerves II through XII intact. Motor and sensory grossly within normal limits. Five out of 5 muscle strength in all muscle groups. Normal speech. Procedures S/p peritoneal mass CT guided biopsy 07/31/17 by IR. A/P Problem List: (1) Hypokalemia ICD Code: E87.6 - Hypokalemia (2) Diarrhea ICD Code: R19.7 - Diarrhea, unspecified (3) Hyperemesis ICD Code: R11.10 - Vomiting, unspecified Assessment and Plan 71-year-old female admitted secondary to hyperemesis with diarrhea and unintentional weight loss and hypokalemia. Hypokalemia Replace and monitor High risk given patient's degree of diarrhea Follow on telemetry Diarrhea. C diff positive Unintentional weight loss Large peritoneal mass of ~[address] A/P with contrast TSH is within normal limits Check stool ova and parasites, Giardia screening negative C. difficile screen positive Autoimmune screening Cortisol level GI consulted Probiotic Started on vancomycin PO QID Monitor for any signs of improvement CT A/P without contrast reviewed and findings discussed with the patient and family at bedside. Patient has a large peritoneal mass ~ 14cm. CT A/P with contrast reviewed, shows large mesenteric mass, poss lymphoma. General surgery consulted. S/p peritoneal mass CT guided biopsy 07/31/17 by IR. Had some pain after the biopsy received norco and she was noted confused after the biopsy. Hyperlipidemia Hold statin for now Hypertension Continue Lomotil DVT prophylaxis Lovenox Discussed with the patient, nurse, family at bedside Discharge planning. Plan to discharge home until cleared by consultants. Patient still with diarrhea. Discharge home when no more diarrhea able to eat. Also patient was noted more confused after biopsy. She is now back at almost her baseline. Mechelle Irwin MD Aug 01, 2017 15:50
[2017-08-01 17:06] LABS: BICARBONATE 20.5 MEQ/L (21.0-32.0); CREATININE 0.87 MG/DL (0.50-1.00)
[2017-08-01] MEDS: ENOXAPARIN SODIUM 40 MG/0.4 ML SYRINGE SQ SCH (17:55)
[2017-08-02] VITALS (8 sets, daily range): BP systolic 140–163; BP diastolic 64–75; PULSE 67–85; RESP 18–20; TEMP 96.7–98.3; O2SAT 96–99
[2017-08-02 03:52] LABS: ENDOMYSIAL AB SCREEN ND (NEGATIVE); ENDOMYSIAL AB TITER ND (<1:5)
[2017-08-02] MEDS: LACTOBACILLUS ACIDOPHILUS TAB PO SCH ×3 (09:48→18:12)
[2017-08-02] MEDS: VANCOMYCIN 500 MG VIAL (FOR ORAL USE ONLY) PO SCH ×4 (09:48→21:58)
[2017-08-02] MEDS ORDERED: POTASSIUM BICARBONATE 25 MEQ EFFERVESCENT TAB PO ONE (10:00)
[2017-08-02] MEDS ORDERED: POTASSIUM CHLORIDE 10 MEQ CONTROLLED RELEASE TAB PO SCH (10:00)
[2017-08-02] MEDS: MAGNESIUM OXIDE 400 MG TAB PO SCH (12:04)
--- NOTE | 2017-08-02 13:00 | HHI.PR ---
Subjective Remarks Patient still with diarrhea. Denies any abdominal pain. No nausea vomiting at this time however she was nauseated last night and diet was changed to full liquid diet. No fever or chills. She is coughing no sputum production. Does not feel short of breath. She is saturating well on room air. Objective Vitals Vital Signs Date Time Temp Pulse Resp B/P (MAP) Pulse Ox O2 Delivery O2 Flow Rate FiO2 08/02/17 08:00 97.9 81 18 158/70 (99) 97 08/02/17 04:00 67 08/02/17 04:00 96.7 71 20 163/72 (102) 97 08/02/17 00:00 69 08/02/17 00:00 96.7 73 18 154/69 (97) 99 08/01/17 21:17 97.7 80 18 157/73 (101) 99 08/01/17 20:00 83 08/01/17 20:00 Room Air 08/01/17 16:00 98.2 80 20 159/71 (100) 97 08/01/17 15:36 71 I/O 08/01/17 08/01/17 08/01/17 08/02/17 08/02/17 08/02/17 07:00 15:00 23:00 07:00 15:00 23:00 Intake Total 360 ml 800 ml 480 ml Balance 360 ml 800 ml 480 ml Intake Oral 360 ml 480 ml IV Total 800 ml # Voids 1 3 3 # Bowel Movements 0 2 1 Result Diagram: 07/31/17 0454 08/01/17 1609 Imaging Last Impressions Chest X-Ray 08/02/17 0000 Signed Impressions: CONCLUSION: No active disease. Abdomen Biopsy CT 07/31/17 0000 Signed Impressions: CONCLUSION: 1. Uncomplicated CT guided biopsy. Abdomen/Pelvis CT 07/29/17 0000 Signed Impressions: CONCLUSION: 1. Large peritoneal mass within the mesentery associated with small bowel: And major vascular structures. Mass appears to infiltrate rather than displace sug gesting lymphoma as a diagnosis. 2. There is no colonic obstruction. 3. There is no small bowel obstruction. 4. This mass would be amenable to large bore percutaneous biopsy for diagnosis if desired. Objective Remarks GENERAL: This is a very pleasant 71-year-old female, well-nourished, well- developed patient, in no apparent distress. CARDIOVASCULAR: Regular rate and rhythm without murmurs, gallops, or rubs. RESPIRATORY: Clear to auscultation. Breath sounds equal bilaterally. No wheezes , rales, or rhonchi. GASTROINTESTINAL: Abdomen soft, hard to palpation right upper quadrant, non- tender, nondistended. No hepato-splenomegaly, or palpable masses. No guarding. MUSCULOSKELETAL: Extremities without clubbing, cyanosis, or edema. No joint tenderness, effusion, or edema noted. No calf tenderness. Negative Homans sign bilaterally. NEUROLOGICAL: Awake and alert. Cranial nerves II through XII intact. Motor and sensory grossly within normal limits. Five out of 5 muscle strength in all muscle groups. Normal speech. Procedures S/p peritoneal mass CT guided biopsy 07/31/17 by IR. A/P Problem List: (1) Hypokalemia ICD Code: E87.6 - Hypokalemia (2) Diarrhea ICD Code: R19.7 - Diarrhea, unspecified (3) Hyperemesis ICD Code: R11.10 - Vomiting, unspecified Assessment and Plan 71-year-old female admitted secondary to hyperemesis with diarrhea and unintentional weight loss and hypokalemia. Hypokalemia Replace and monitor High risk given patient's degree of diarrhea Follow on telemetry Diarrhea. C diff positive Unintentional weight loss Large peritoneal mass of ~[address] A/P with contrast TSH is within normal limits Check stool ova and parasites, Giardia screening negative C. difficile screen positive Autoimmune screening Cortisol level GI consulted Probiotic Started on vancomycin PO QID Monitor for any signs of improvement CT A/P without contrast reviewed and findings discussed with the patient and family at bedside. Patient has a large peritoneal mass ~ 14cm. CT A/P with contrast reviewed, shows large mesenteric mass, poss lymphoma. General surgery consulted. S/p peritoneal mass CT guided biopsy 07/31/17 by IR. Had some pain after the biopsy received norco and she was noted confused after the biopsy. Hyperlipidemia Hold statin for now Hypertension Continue Lomotil Cough. CXR ordered and reviewed no acute findings, no infiltrates. Add IS. DVT prophylaxis Lovenox Discussed with the patient, nurse, family at bedside Discharge planning. Plan to discharge home until cleared by consultants. Patient still with diarrhea. Discharge home when no more diarrhea able to eat. Also patient was noted more confused after biopsy. She is now back at almost her baseline. Mechelle Irwin MD Aug 02, 2017 13:00
[2017-08-02 13:14] LABS: BICARBONATE 26.4 MEQ/L (21.0-32.0); CREATININE 0.87 MG/DL (0.50-1.00)
--- NOTE | 2017-08-02 14:48 | RADRPT ---
EXAM DATE: 08/02/2017 2:21 PM EDT AGE/SEX: 71 years / Female INDICATIONS: Cough. CLINICAL DATA: This is the patient's subsequent encounter. Patient reports that signs and symptoms h ave been present for 1 day and indicates a pain score of 0/10. MEDICAL/SURGICAL HISTORY: Hypertension. Renal calculi. Hysterectomy. COMPARISON: No prior exams available for comparison. FINDINGS: No focal consolidation. Heart size upper limits normal. No effusion. CONCLUSION: No active disease. Electronically signed by: Mayco Sosa MD 08/02/2017 2:47 PM EDT
[2017-08-02] MEDS: ENOXAPARIN SODIUM 40 MG/0.4 ML SYRINGE SQ SCH (16:54)
[2017-08-02] MEDS: SODIUM CHLORIDE 0.9% FLUSH 10 ML FLUSH IV FLUSH SCH ×2 (18:12→21:59)
[2017-08-03] VITALS (8 sets, daily range): BP systolic 133–169; BP diastolic 51–81; PULSE 70–83; RESP 18–20; TEMP 96.5–98.6; O2SAT 96–98
[2017-08-03] MEDS: VANCOMYCIN 500 MG VIAL (FOR ORAL USE ONLY) PO SCH ×4 (09:30→20:51)
[2017-08-03] MEDS: LOSARTAN 50 MG TAB PO SCH (09:31)
[2017-08-03] MEDS: POTASSIUM BICARBONATE 25 MEQ EFFERVESCENT TAB PO SCH (09:32)
[2017-08-03] MEDS: SODIUM CHLORIDE 0.9% FLUSH 10 ML FLUSH IV FLUSH SCH ×2 (09:32→20:51)
[2017-08-03] MEDS: MAGNESIUM OXIDE 400 MG TAB PO SCH (09:32)
[2017-08-03] MEDS: LACTOBACILLUS ACIDOPHILUS TAB PO SCH ×3 (09:32→17:27)
[2017-08-03 10:38] LABS: BICARBONATE 24.8 MEQ/L (21.0-32.0); CALCIUM 8.4 MG/DL (8.5-10.1); CREATININE 0.76 MG/DL (0.50-1.00)
[2017-08-03] MEDS ORDERED: POTASSIUM CHLORIDE 10 MEQ CONTROLLED RELEASE TAB PO ONE (12:00)
[2017-08-03] MEDS ORDERED: POTASSIUM CHLOR 20 MEQ PREMIX 100 ML IV ONE (12:00)
[2017-08-03] MEDS: ENOXAPARIN SODIUM 40 MG/0.4 ML SYRINGE SQ SCH (15:04)
--- NOTE | 2017-08-03 16:18 | HHI.PR ---
Subjective Remarks Says she feels much better today. Still with weakness however. No much diarrhea she had a small forming bowel movement. No fever or chills. No abdominal pain or back pain. No lightheadedness. Objective Vitals Vital Signs Date Time Temp Pulse Resp B/P (MAP) Pulse Ox O2 Delivery O2 Flow Rate FiO2 08/03/17 12:00 98.6 78 18 144/51 (82) 96 08/03/17 12:00 71 08/03/17 09:32 96 Room Air 08/03/17 08:08 73 08/03/17 08:08 73 08/03/17 08:00 97.4 74 18 169/81 (110) 96 08/03/17 04:00 83 08/03/17 04:00 96.5 70 20 133/63 (86) 98 08/03/17 04:00 Room Air 08/03/17 00:10 96.6 78 20 145/68 (93) 97 08/03/17 00:00 77 08/03/17 00:00 Room Air 08/02/17 20:20 98 21 08/02/17 20:00 97.1 77 18 148/70 (96) 97 08/02/17 20:00 Room Air 08/02/17 20:00 77 I/O 08/02/17 08/02/17 08/02/17 08/03/17 08/03/17 08/03/17 07:00 15:00 23:00 07:00 15:00 23:00 Intake Total 480 ml 120 ml Balance 480 ml 120 ml Intake Oral 480 ml 120 ml # Voids 3 4 2 # Bowel Movements 1 3 0 Result Diagram: 07/31/17 0454 08/03/17 0835 Imaging Last Impressions Chest X-Ray 08/02/17 0000 Signed Impressions: CONCLUSION: No active disease. Abdomen Biopsy CT 07/31/17 0000 Signed Impressions: CONCLUSION: 1. Uncomplicated CT guided biopsy. Abdomen/Pelvis CT 07/29/17 0000 Signed Impressions: CONCLUSION: 1. Large peritoneal mass within the mesentery associated with small bowel: And major vascular structures. Mass appears to infiltrate rather than displace sug gesting lymphoma as a diagnosis. 2. There is no colonic obstruction. 3. There is no small bowel obstruction. 4. This mass would be amenable to large bore percutaneous biopsy for diagnosis if desired. Objective Remarks GENERAL: This is a very pleasant 71-year-old female, well-nourished, well- developed patient, in no apparent distress. CARDIOVASCULAR: Regular rate and rhythm without murmurs, gallops, or rubs. RESPIRATORY: Clear to auscultation. Breath sounds equal bilaterally. No wheezes , rales, or rhonchi. GASTROINTESTINAL: Abdomen soft, hard to palpation right upper quadrant, non- tender, nondistended. No hepato-splenomegaly, or palpable masses. No guarding. MUSCULOSKELETAL: Extremities without clubbing, cyanosis, or edema. No joint tenderness, effusion, or edema noted. No calf tenderness. Negative Homans sign bilaterally. NEUROLOGICAL: Awake and alert. Cranial nerves II through XII intact. Motor and sensory grossly within normal limits. Five out of 5 muscle strength in all muscle groups. Normal speech. Procedures S/p peritoneal mass CT guided biopsy 07/31/17 by IR. A/P Problem List: (1) Hypokalemia ICD Code: E87.6 - Hypokalemia (2) Diarrhea ICD Code: R19.7 - Diarrhea, unspecified (3) Hyperemesis ICD Code: R11.10 - Vomiting, unspecified Assessment and Plan 71-year-old female admitted secondary to hyperemesis with diarrhea and unintentional weight loss and hypokalemia. Hypokalemia Replace and monitor High risk given patient's degree of diarrhea Follow on telemetry Diarrhea. C diff positive Unintentional weight loss Large peritoneal mass of ~[address] A/P with contrast TSH is within normal limits Check stool ova and parasites, Giardia screening negative C. difficile screen positive Autoimmune screening Cortisol level GI consulted Probiotic Started on vancomycin PO QID Monitor for any signs of improvement CT A/P without contrast reviewed and findings discussed with the patient and family at bedside. Patient has a large peritoneal mass ~ 14cm. CT A/P with contrast reviewed, shows large mesenteric mass, poss lymphoma. General surgery consulted. S/p peritoneal mass CT guided biopsy 07/31/17 by IR. Had some pain after the biopsy received norco and she was noted confused after the biopsy. Hyperlipidemia Hold statin for now Hypertension Continue Lomotil Cough. CXR ordered and reviewed no acute findings, no infiltrates. Add IS. DVT prophylaxis Lovenox Discussed with the patient, nurse, family at bedside Discharge planning. Plan to discharge home until cleared by consultants. Patient still with diarrhea. Discharge home when no more diarrhea able to eat. Also patient was noted more confused after biopsy. She is now back at her baseline. Still with persistent hypokalemia. Replaced. Family wants Dr. Delcid oncology DrPeri to be consulted tomorrow for biopsy results and for Dr. Delcid to talk with the patient regarding the results. Will consult tomorrow Mechelle Morales MD Aug 03, 2017 16:17
[2017-08-04] VITALS: BP 123/58; PULSE 68; PULSE 71; RESP 17; TEMP 98.5; O2SAT 97
[2017-08-04 04:00] VITALS: BP 131/68; PULSE 65; PULSE 68; RESP 17; TEMP 98.2; O2SAT 98
[2017-08-04 08:00] VITALS: BP 140/68; PULSE 78; PULSE 80; RESP 16; TEMP 97.8; O2SAT 97
[2017-08-04 08:01] LABS: BICARBONATE 24.8 MEQ/L (21.0-32.0); CALCIUM 8.6 MG/DL (8.5-10.1); CREATININE 0.81 MG/DL (0.50-1.00)
[2017-08-04] MEDS: VANCOMYCIN 500 MG VIAL (FOR ORAL USE ONLY) PO SCH ×3 (08:51→17:05)
[2017-08-04] MEDS: SODIUM CHLORIDE 0.9% FLUSH 10 ML FLUSH IV FLUSH SCH (08:51)
[2017-08-04] MEDS: LOSARTAN 50 MG TAB PO SCH (08:51)
[2017-08-04] MEDS: MAGNESIUM OXIDE 400 MG TAB PO SCH (08:51)
[2017-08-04] MEDS: POTASSIUM BICARBONATE 25 MEQ EFFERVESCENT TAB PO SCH (08:51)
[2017-08-04] MEDS: LACTOBACILLUS ACIDOPHILUS TAB PO SCH ×3 (08:51→17:05)
[2017-08-04 12:00] VITALS: BP 152/75; PULSE 75; PULSE 79; RESP 16; TEMP 97.3; O2SAT 96
--- NOTE | 2017-08-04 13:33 | HHI.PR ---
Subjective Remarks She is bed family at bedside. Says she was able to eat and keep down food, no nausea or vomiting. No diarrhea, has forming stools. No fever or chills. Objective Vitals Vital Signs Date Time Temp Pulse Resp B/P (MAP) Pulse Ox O2 Delivery O2 Flow Rate FiO2 08/04/17 12:00 75 08/04/17 08:00 Room Air 08/04/17 08:00 78 08/04/17 08:00 97.8 80 16 140/68 (92) 97 08/04/17 04:00 98.2 68 17 131/68 (89) 98 08/04/17 04:00 65 08/04/17 04:00 Room Air 08/04/17 00:00 68 08/04/17 00:00 98.5 71 17 123/58 (79) 97 08/04/17 00:00 Room Air 08/03/17 20:00 97.9 77 18 167/79 (108) 97 08/03/17 20:00 Room Air 08/03/17 16:00 76 08/03/17 16:00 98.4 80 18 160/72 (101) 97 I/O 08/03/17 08/03/17 08/03/17 08/04/17 08/04/17 08/04/17 07:00 15:00 23:00 07:00 15:00 23:00 Intake Total 120 ml 100 ml 480 ml 120 ml Balance 120 ml 100 ml 480 ml 120 ml Intake Oral 120 ml 480 ml 120 ml IV Total 100 ml # Voids 2 3 1 # Bowel Movements 0 2 1 Result Diagram: 07/31/17 0454 08/04/17 0704 Imaging Last Impressions Chest X-Ray 08/02/17 0000 Signed Impressions: CONCLUSION: No active disease. Abdomen Biopsy CT 07/31/17 0000 Signed Impressions: CONCLUSION: 1. Uncomplicated CT guided biopsy. Abdomen/Pelvis CT 07/29/17 0000 Signed Impressions: CONCLUSION: 1. Large peritoneal mass within the mesentery associated with small bowel: And major vascular structures. Mass appears to infiltrate rather than displace sug gesting lymphoma as a diagnosis. 2. There is no colonic obstruction. 3. There is no small bowel obstruction. 4. This mass would be amenable to large bore percutaneous biopsy for diagnosis if desired. Objective Remarks GENERAL: This is a very pleasant 71-year-old female, well-nourished, well- developed patient, in no apparent distress. CARDIOVASCULAR: Regular rate and rhythm without murmurs, gallops, or rubs. RESPIRATORY: Clear to auscultation. Breath sounds equal bilaterally. No wheezes , rales, or rhonchi. GASTROINTESTINAL: Abdomen soft, hard to palpation right upper quadrant, non- tender, nondistended. No hepato-splenomegaly, or palpable masses. No guarding. MUSCULOSKELETAL: Extremities without clubbing, cyanosis, or edema. No joint tenderness, effusion, or edema noted. No calf tenderness. Negative Homans sign bilaterally. NEUROLOGICAL: Awake and alert. Cranial nerves II through XII intact. Motor and sensory grossly within normal limits. Five out of 5 muscle strength in all muscle groups. Normal speech. Procedures S/p peritoneal mass CT guided biopsy 07/31/17 by IR. A/P Problem List: (1) Hypokalemia ICD Code: E87.6 - Hypokalemia (2) Diarrhea ICD Code: R19.7 - Diarrhea, unspecified (3) Hyperemesis ICD Code: R11.10 - Vomiting, unspecified Assessment and Plan 71-year-old female admitted secondary to hyperemesis with diarrhea and unintentional weight loss and hypokalemia. Hypokalemia Replace and monitor High risk given patient's degree of diarrhea Follow on telemetry Diarrhea. C diff positive Unintentional weight loss Large peritoneal mass of ~[address] A/P with contrast TSH is within normal limits Check stool ova and parasites, Giardia screening negative C. difficile screen positive Autoimmune screening Cortisol level GI consulted Probiotic Started on vancomycin PO QID Monitor for any signs of improvement CT A/P without contrast reviewed and findings discussed with the patient and family at bedside. Patient has a large peritoneal mass ~ 14cm. CT A/P with contrast reviewed, shows large mesenteric mass, poss lymphoma. General surgery consulted. S/p peritoneal mass CT guided biopsy 07/31/17 by IR. Had some pain after the biopsy received norco and she was noted confused after the biopsy. Hyperlipidemia Hold statin for now Hypertension Continue Lomotil Cough. CXR ordered and reviewed no acute findings, no infiltrates. Add IS. DVT prophylaxis Lovenox Discussed with the patient, nurse, family at bedside Discharge planning. Plan to discharge home until cleared by consultants. Patient still with diarrhea. Discharge home when no more diarrhea able to eat. Also patient was noted more confused after biopsy. She is now back at her baseline. Still with persistent hypokalemia. Replaced. Family wants Dr. Delcid oncology to be consulted tomorrow for biopsy results and for Dr. Delcid to talk with the patient regarding the results. Consult Dr. Delcid hematology oncology. Mechelle Irwin MD Aug 04, 2017 13:33
--- NOTE | 2017-08-04 13:35 | HHI.FF ---
Face to Face Verification Diagnosis: (1) Mass of peritoneum (2) C. difficile diarrhea (3) Hypokalemia (4) Diarrhea (5) Hyperemesis Home Health Nursing Order: Medical education Signs/symptoms of disease process Medication education-adverse effect Nursing assessment with vital signs I have seen patient Renita Johnson on 08/04/17. My clinical findings support the need for the requested home health care services because: Ltd mobility - disease progression I certify that my clinical findings support that this patient is homebound because: Post-op weakness Mechelle Irwin MD Aug 04, 2017 13:34
[2017-08-04 15:44] VITALS: PULSE 76
[2017-08-04 16:00] VITALS: BP 142/72; PULSE 78; RESP 16; TEMP 97.7; O2SAT 96
[2017-08-04] MEDS: ENOXAPARIN SODIUM 40 MG/0.4 ML SYRINGE SQ SCH (17:05)
--- NOTE | 2017-08-05 08:26 | MB ---
cc: Nora Delcid MD DATE: 08/04/2017 CHIEF COMPLAINT: B-cell non-Hodgkin's lymphoma. HISTORY OF PRESENT ILLNESS: Ms. Johnson is a 71-year-old lady with history of hypertension and hyperlipidemia, who was admitted to the hospital on 07/28/2017 with a several month history of progressively worsening diarrhea and weight loss. Workup ensued and she was found to have C. difficile infection. Imaging studies including CT scan of the abdomen and pelvis showed a large peritoneal mass measuring 14 cm that involves the root of the mesentery of the body of the pancreas, initial association with the aorta and inferior vena cava. CT of the abdomen and pelvis with contrast showed trace ascites. Liver is free of focal deficits. Large peritoneal mass measuring 10.5 cm in intimate association with the portal vein, pancreas, SMA and superior mesenteric vein. The superior mesenteric artery does course through this mass and remains patent. The superior mesenteric vein is probably occluded distally. The mass is in intimate association with the celiac artery. There is no retroperitoneal component. There is a soft tissue component on the right and involves small bowel and the right descending colon. Multiple parapelvic cysts are evident without renal obstruction. There is no pelvic component. There is no colonic obstruction with radiographic contrast passing of the colon. No bony metastatic disease. She subsequently underwent a CT-guided biopsy with the results returning as atypical lymphoid infiltrate consistent with a B-cell non-Hodgkin's lymphoma. Pathology comment shows a small fragment of fibroadipose tissue containing predominantly crushed atypical lymphoid infiltrate. Flow cytometry shows monoclonal B cell population compatible with a B-cell non-Hodgkin's lymphoma expressing CD10. The differential diagnosis includes a high-grade follicular lymphoma and diffuse large B cell lymphoma of germinal center origin. Triple-hit lymphoma and FISH testing is pending on the flow touch imprint slide. Laboratory studies with a white blood cell count 5.3, hemoglobin 12.4 and platelet count 254,000. Chemistry studies with a creatinine of 0.81. Previous liver function tests are within normal limits. PAST MEDICAL HISTORY: 1. Diabetes. 2. Hypertension. PAST SURGICAL HISTORY: Hysterectomy in late 2017. FAMILY HISTORY: Father with bladder cancer, mother with coronary artery disease. SOCIAL HISTORY: No tobacco, alcohol, or illegal drug use. Good support system. PHYSICAL EXAMINATION: GENERAL: Well-developed, well-nourished lady, in no distress. SKIN: No rashes. HEENT: Head is normocephalic, atraumatic. Eyes: PERRLA, EOMI. NECK: Supple with no palpable lymphadenopathy. CARDIOVASCULAR: Regular rate with no murmurs. RESPIRATORY: Clear to auscultation bilaterally. ABDOMEN: Soft, nontender. Palpable abdominal mass. MUSCULOSKELETAL: Full range of motion. NEUROLOGIC: Grossly nonfocal. PSYCHIATRIC: Appropriate mood and affect. ASSESSMENT AND PLAN: B-cell non-Hodgkin's lymphoma. We will need to complete workup. We will need to await results of FISH testing to ensure adequate treatment. We will also need to order echocardiogram, CT scan, bone marrow biopsy, LDH, uric acid, hepatitis B studies. Discussed treatment of diffuse large B cell lymphoma grade 3 follicular lymphoma with the patient. Discussed that this would likely be with R-CHOP chemotherapy every 21 days for 6 cycles. Patient is amenable. She will be discharged. Workup will be completed in the outpatient setting. She will have close followup in clinic. MD GWENDOLYN Edwards/FAVIAN , 08:01 AM , 08:25 AM
== END 2017-08-04 19:03 | disposition home health service (06) | DRG 372 ==
LOC: NEPC 09:40 → NEDA 14:31 → N04B 16:41
PROVIDERS: ADMIT Hospitalist; ATTEND Hospitalist
PROC: 0DBV3ZX Excision of Mesentery, Percutaneous Approach, Diagnostic (ICD-10-PCS; principal; 2017-07-31)
DX: A04.72 Enterocolitis due to Clostridium difficile, not specified as recurrent (principal); C85.13 Unspecified B-cell lymphoma, intra-abdominal lymph nodes; E11.9 Type 2 diabetes mellitus without complications; E78.5 Hyperlipidemia, unspecified; E87.6 Hypokalemia; I10 Essential (primary) hypertension; K21.0 Gastro-esophageal reflux disease with esophagitis; K29.70 Gastritis, unspecified, without bleeding; K44.9 Diaphragmatic hernia without obstruction or gangrene; K66.9 Disorder of peritoneum, unspecified; M54.9 Dorsalgia, unspecified; R05 Cough; R53.1 Weakness; R63.4 Abnormal weight loss; Z68.27 Body mass index [BMI] 27.0-27.9, adult; Z90.710 Acquired absence of both cervix and uterus; Z88.8 Allergy status to other drugs, medicaments and biological substances; Z88.0 Allergy status to penicillin; Z91.013 Allergy to seafood; Z79.82 Long term (current) use of aspirin; R11.10 Vomiting, unspecified
CPT/HCPCS: 49180; 71045; 74176; 74177; 77012; 80048; 80053; 81001; 82378; 82533; 82784; 83516; 83690; 83735; 84100; 84443; 85007; 85025; 85027; 85610; 85652; 86038; 86140; 86301; 86430; 87328; 87329; 87493; 87506; 88184; 88185; 88305; 88307; 88377; 94150; 96360; 96361; 99151; 99152; 99153; J1650; J2060; J2920; J3010; J3480; J7030; Q9963; Q9967